=== PATIENT | male | born 1940 | race Hispanic/Latino ===

== ENCOUNTER 2017-04-12 09:28 | Inpatient (IN) | payer MEDICARE, BC ==
[2017-04-12 09:42] VITALS: BMI 24.4
--- NOTE | 2017-04-12 10:01 | ED PDOC ---
Arrival/HPI - General Chief Complaint: Lower Extremity Problem/Injury Time Seen by Provider: 04/12/17 09:40 Historian: Patient - History of Present Illness Narrative History of Present Illness (Text): 04/12/17 10:00 76 year old male, occasional smoker, with past medical history of hypertension , benign prostatic hyperplasia, and borderline diabetic, presents to the emergency department complaining of left foot infection for one week. Patient informs stepping on a toothpick barefoot 1 week ago and noticed puncture, mild redness and swelling afterwards. Patient informs visiting a foot doctor 3 days ago for worsening symptoms and informs receiving treatment. Yesterday, patient noticed worsening symptoms with redness and swelling spreading to his toes and on top of foot and discomfort moving his toes. Patient informs blood and drainage in the wound area. Patient denies any fever, chills, nausea, vomiting, abdominal pain, chest pain, shortness of breath, sick contact, recent travels or any other complaints. PMD: Dr. Obrien Time/Duration: 1 week Symptom Onset: Sudden Symptom Course: Worsening Activities at Onset: Light Context: Other (Stepped on toothpick ) Past Medical History - Provider Review Nursing Documentation Reviewed: Yes - Infectious Disease Hx of Infectious Diseases: None - Tetanus Immunization Tetanus Immunization: Unknown - Cardiac Hx Hypertension: Yes - Pulmonary Hx Pneumonia: Yes - Neurological Hx Transient Ischemic Attacks (TIA): Yes (PATIENT DENIES) - HEENT Hx HEENT Disorder: Yes (WEARS RX GLASSES) Hx Deafness: Yes (BILATERAL EARS) - Renal Hx Renal Disorder: No - Endocrine/Metabolic Hx Endocrine Disorders: Yes (DM -BORDERLINE) - Hematological/Oncological Hx Blood Disorders: Yes Hx Cancer: Yes (PALATE/RASIATION COMPLETED 5 YRS AGO) - Integumentary Hx Dermatological Disorder: No - Musculoskeletal/Rheumatological Hx Arthritis: No - Gastrointestinal Hx Gastrointestinal Disorders: Yes (INGUINAL HERNIA) Hx Gastroesophageal Reflux: Yes - Genitourinary/Gynecological Hx Genitourinary Disorders: Yes Hx Prostate Problems: Yes (BPH) - Psychiatric Hx Anxiety: Yes Hx Depression: No Hx Substance Use: No - Past Surgical History Past Surgical History: Non-Contributing - Surgical History Hx Cardiac Catheterization: Yes - Anesthesia Hx Anesthesia: No Hx Anesthesia Reactions: No Hx Malignant Hyperthermia: No - Suicidal Assessment Feels Threatened In Home Enviroment: No Family/Social History - Physician Review Nursing Documentation Reviewed: Yes Family/Social History: No Known Family HX Smoking Status: Never Smoked Hx Alcohol Use: No Hx Substance Use: No Hx Substance Use Treatment: No Allergies/Home Meds Allergies/Adverse Reactions: Allergies No Known Allergies Allergy (Verified 07/04/14 19:18) Home Medications: Home Meds Medication Instructions Recorded Confirmed Lorazepam [Ativan] 2 mg PO HS 01/03/13 04/12/17 Silodosin [Rapaflo] 8 mg PO DAILY 01/03/13 04/12/17 Dutasteride [Avodart] 0.5 mg PO DAILY 04/12/17 04/12/17 Review of Systems - Physician Review All systems were reviewed & negative as marked: Yes - Review of Systems Constitutional: Normal. absent: Fevers Eyes: Normal ENT: Normal Respiratory: Normal. absent: SOB Cardiovascular: Normal. absent: Chest Pain Gastrointestinal: Normal. absent: Abdominal Pain, Diarrhea, Nausea, Vomiting Genitourinary Male: Normal Musculoskeletal: Other (left foot puncture s/p stepping on toothpick ) Skin: Other (redness and swelling to the area of puncture on left foot ) Neurological: Normal Endocrine: Normal Hemo/Lymphatic: Normal Psychiatric: Normal Physical Exam Vital Signs Reviewed: Yes Vital Signs Temp Pulse Resp BP Pulse Ox 04/12/17 12:08 18 98 04/12/17 11:36 98.0 F 82 17 99 04/12/17 09:28 98.7 F 84 18 148/77 98 Temperature: Afebrile Blood Pressure: Normal Pulse: Regular Respiratory Rate: Normal Appearance: Positive for: Well-Appearing, Non-Toxic, Comfortable Pain Distress: Mild Mental Status: Positive for: Alert and Oriented X 3 - Systems Exam Head: Present: Atraumatic Pupils: Present: PERRL Mouth: Present: Moist Mucous Membranes Pharnyx: No: ERYTHEMA Neck: No: Meningeal Signs Respiratory/Chest: Present: Clear to Auscultation. No: Respiratory Distress Cardiovascular: Present: Regular Rate and Rhythm Abdomen: No: Tenderness Upper Extremity: No: Cyanosis, Edema Lower Extremity: Present: Tenderness, Swelling, Erythema, Other (patient with puncture wound to plantar surface of left foot with no palpable foreign bodies but significant surrounding erythema and edema with currently no pus or bleeding there is erythema extending to dorsal aspect of foot with mild erythema to distal xiao/ankle, distal pulses intact) Neurological: Present: Motor Func Grossly Intact, Normal Sensory Function Skin: Present: Erythematous (left foot) Psychiatric: Present: Alert Medical Decision Making ED Course and Treatment: 04/12/17 10:11 Impression: 76 year old male presents to the emergency department complaining of left foot infection. Differential Diagnosis included but are not limited to: cellulitis, foreign body , abscess Plan: -- VBG -- Labs -- Rocephin -- Blood culture -- Urine culture -- wound culture -- X-ray of left foot -- Urinalysis -- Reassess and disposition Progress Notes: Patient states he is not diabetic, states he was "borderline diabetic in past". He reports seeing waste/materials exchange specialist 2-3 days ago with attempt at removal of foreign body. Patient's exam is significant for cellulitis changes to left foot with streaking, currently no fluctuance or systemic symptoms. He is neurovascularly intact. IV antibiotics initiated. 04/12/17 12:10 X-Ray of foot reviewed by radiologist, shows small radiopaque foreign bodies in the subcutaneous soft tissues of the plantar forefoot, the largest measures 4 mm. Patient will be admitted for treatment of cellulitis, podiatry consultation for foreign body. D/w hospitalist covering for PMD. Treatment plan reviewed with patient and Dr. Singh. - Lab Interpretations Microbiology Results: Microbiology Results 04/12/17 10:05 Blood Blood Culture - Preliminary NO GROWTH AFTER 24 HOURS 04/12/17 10:05 Blood Blood Culture - Preliminary NO GROWTH AFTER 24 HOURS 04/12/17 10:05 Foot - Left Gram Stain - Final Lab Results: 04/12/17 10:05 04/12/17 10:00 Lab Results 04/12/17 10:31: Urine Color Yellow, Urine Appearance Clear, Urine pH 6.0, Ur Specific [place] 1.020, Urine Protein Negative, Urine Glucose (UA) Negative, Urine Ketones Trace H, Urine Blood Moderate H, Urine Nitrate Negative, Urine Bilirubin Negative, Urine Urobilinogen 0.2, Ur Leukocyte Esterase Negative, Urine RBC 15 - 20, Urine WBC 0 - 2, Ur Epithelial Cells None, Amorphous Sediment Few, Urine Bacteria Many, Urine Other Fiber 04/12/17 10:05: WBC 12.1 H D, RBC 4.10, Hgb 13.3 L, Hct 38.5 L, MCV 93.9, MCH 32.4, MCHC 34.5, RDW 12.7, Plt Count 260, MPV 10.9, Gran % 77.6 H, Lymph % (Auto ) 11.7 L, [place] % (Auto) 10.4 H, Eos % (Auto) 0.1 L, Baso % (Auto) 0.2, Gran # 9.36 H, Lymph # 1.4, [place] # 1.3 H, Eos # 0.0, Baso # 0.03 04/12/17 10:00: Sodium 137, Chloride 101, Potassium 4.5, Carbon Dioxide 26, Anion Gap 15, BUN 18, Creatinine 1.2, Est GFR ( Amer) > 60, Est GFR (Non- Af Amer) 59, Random Glucose 191 H, Calcium 10.1, Total Bilirubin 1.3, AST 32, ALT 34, Alkaline Phosphatase 73, Total Protein 7.2, Albumin 4.4, Globulin 2.8, Albumin/Globulin Ratio 1.6 04/12/17 10:00: pO2 40, VBG pH 7.34, VBG pCO2 52.0, VBG HCO3 28.1 H, VBG Total CO2 29.7 H, VBG O2 Sat (Calc) 79.4 H, VBG Base Excess 1.4, VBG Potassium 4.4, Sodium 135.0, Chloride 102.0, Glucose 207 H, Lactate 2.0, FiO2 21.0, Venous Blood Potassium 4.4 - RAD Interpretation Radiology Orders: 04/12/17 10:01 FOOT LEFT 3 VIEWS ROUTINE [RAD] Stat Editorial Clerk: Radiologist - Medication Orders Current Medication Orders: Acetaminophen (Tylenol 325mg Tab) 650 mg PO Q4H PRN PRN Reason: Pain, Mild (1-3) Heparin Sodium (Porcine) (Heparin) 5,000 units SC Q12 KEVIN PRN Reason: Protocol Last Admin: 04/13/17 09:51 Dose: 5,000 units Subcutaneous Administrations Document 04/13/17 09:51 ANTOALL (Rec: 04/13/17 09:51 [place] [facility] [id number] Injection Site MAR Injection Site Left Abdomen Charges for Administration # of Subcutaneous Administrations 1 Vancomycin HCl (Vancomycin 1gm) 1 gm in 250 mls @ 167 mls/hr IVPB Q12H KEVIN PRN Reason: Protocol Last Admin: 04/13/17 06:10 Dose: 167 mls/hr eMAR Start Stop Document 04/13/17 06:10 MB (Rec: 04/13/17 06:10 [id number]) Intravenous Solution Start Date 04/13/17 Start Time 06:10 Ampicillin Sodium/Sulbactam (Sodium 3 gm/ Sodium Chloride) 100 mls @ 200 mls/ hr IVPB Q6 KEVIN PRN Reason: Protocol Last Admin: 04/13/17 06:06 Dose: 200 mls/hr eMAR Start Stop Document 04/13/17 06:06 MB (Rec: 04/13/17 06:06 [id number]) Intravenous Solution Start Date 04/13/17 Start Time 06:06 Indomethacin (Indocin) 25 mg PO TID KEVIN Last Admin: 04/13/17 10:05 Dose: 25 mg MAR Pain Assessment Document 04/13/17 10:05 ANTOALL (Rec: 04/13/17 10:06 [place]TO[place] [facility] [place] [id number][place] Pain Reassessment Is this a pain reassessment? No Sleep Is patient sleeping during reassessment? No Presence of Pain Presence of Pain Yes Location Left, Right or Bilateral Left Pain Location Body Site Foot Description Description Intermittent Intensity of Pain at present 6 Lorazepam (Ativan) 2 mg PO HS KEVIN PRN Reason: Protocol Last Admin: 04/12/17 22:51 Dose: 2 mg Behavioural Document 04/12/17 22:51 MB (Rec: 04/12/17 22:51 [id number]) Maintenance Maintenance Dose Yes Re-Assess: Reassess Psych Meds Document 04/12/17 23:51 MB (Rec: 04/13/17 02:44 MB [id number]) Reassess Psych Med Effective Pantoprazole Sodium (Protonix Ec Tab) 40 mg PO 0600 [facility] Last Admin: 04/13/17 06:10 Dose: 40 mg Tamsulosin HCl (Flomax) 0.4 mg PO DAILY KEVIN Last Admin: 04/13/17 09:51 Dose: 0.4 mg Discontinued Medications Ceftriaxone Sodium (Rocephin 1 Gram Ivpb) 1 gm in 100 mls @ 200 mls/hr IVPB ONCE STA PRN Reason: Protocol Stop: 04/12/17 10:31 Last Admin: 04/12/17 10:24 Dose: 200 mls/hr eMAR Start Stop Document 04/12/17 10:24 [email or web address] (Rec: 04/12/17 10:34 [email or web address] [id number]) Intravenous Solution Start Date 04/12/17 Start Time 10:24 End Date 04/12/17 Vancomycin HCl (Vancomycin 1gm) 1 gm in 250 mls @ 167 mls/hr IVPB STAT STA PRN Reason: Protocol Stop: 04/12/17 12:19 Last Admin: 04/12/17 11:25 Dose: 167 mls/hr eMAR Start Stop Document 04/12/17 11:25 [email or web address] (Rec: 04/12/17 11:26 [email or web address] [id number]) Intravenous Solution Start Date 04/12/17 Start Time 11:26 End Date 04/12/17 Pneumococcal Polyvalent Vaccine (Pneumovax 23 Vaccine) 0.5 ml IM .ONCE ONE Stop: 04/12/17 15:30 Last Admin: 04/12/17 18:23 Dose: MAR Immunization Data Document 04/12/17 18:23 (Rec: 04/12/17 18:24 [email or web address]) Immunization Data Vaccine Information Sheet Given No: refused Immunization Registry Document 04/12/17 18:23 (Rec: 04/12/17 18:24 [email or web address]) Immunization Registry Consent Date 04/12/17 - Scribe Statement The provider has reviewed the documentation as recorded by the Scribe Juliano Cao. All medical record entries made by the Scribe were at my direction and personally dictated by me. I have reviewed the chart and agree that the record accurately reflects my personal performance of the history, physical exam, medical decision making, and the department course for this patient. I have also personally directed, reviewed, and agree with the discharge instructions and disposition. Disposition/Present on Arrival - Present on Arrival Any Indicators Present on Arrival: No History of DVT/PE: No History of Uncontrolled Diabetes: No Urinary Catheter: No History of Decub. Ulcer: No History Surgical Site Infection Following: None - Disposition Have Diagnosis and Disposition been Completed?: Yes Diagnosis: Cellulitis of foot, Puncture wound of foot, Foreign body in foot Disposition: HOSPITALIZED Disposition Time: 10:30 Patient Plan: Admission Condition: FAIR
[2017-04-12] MEDS ORDERED: cefTRIAXone 1 gm 1 GM/100 ML BAG IVPB STA (10:02)
[2017-04-12 10:32] LABS: BASO # 0.03 K/mm3 (0.0-2.0); BASO % 0.2 % (0.0-3.0); EOS % 0.1 % (1.5-5.0); GRAN # 9.36 (1.4-6.5); GRAN % 77.6 % (50.0-68.0); HEMOGLOBIN 13.3 g/dL (14.0-18.0); LYMPH # 1.4 (1.2-3.4); LYMPH % 11.7 % (22.0-35.0); MEAN CELL VOLUME 93.9 fl (80.0-105.0); MEAN CORPUSCULAR HEMOGLOBIN 32.4 pg (25.0-35.0); MEAN CORPUSCULAR HGB CONC 34.5 g/dl (31.0-37.0); MEAN PLATELET VOLUME 10.9 fl (7.0-11.0); MONO # 1.3 (0.1-0.6); MONO % 10.4 % (1.0-6.0); RBC 4.1 10^6/uL (3.5-6.1); RED CELL DISTRIBUTION WIDTH 12.7 % (11.5-14.5); WHITE BLOOD COUNT 12.1 10^3/ul (4.5-11.0)
[2017-04-12 10:35] LABS: VENOUS BLOOD GAS BASE EXCESS 1.4 mmol/L (0.0-2.0); VENOUS BLOOD GAS PO2 40 mm/Hg (30-55); VENOUS BLOOD PH 7.34 (7.32-7.43)
[2017-04-12 10:38] LABS: ALB/GLOB RATIO 1.6 (1.1-1.8); ALBUMIN 4.4 g/dL (3.0-4.8); ALT/SGPT 34 U/L (7-56); AST/SGOT 32 U/L (17-59); BLOOD UREA NITROGEN 18 mg/dL (7-21); CALCIUM 10.1 mg/dL (8.4-10.5); GFR AFRICAN-AMERICAN > 60; GFR NON-AFRICAN AMERICAN 59
[2017-04-12 10:43] LABS: URINE BILIRUBIN NEGATIVE (NEGATIVE); URINE BLOOD MODERATE (NEGATIVE); URINE GLUCOSE (UA) NEGATIVE (NEGATIVE); URINE LEUKOCYTE ESTERASE NEGATIVE Leu/uL (NEGATIVE); URINE NITRATE NEGATIVE (NEGATIVE); URINE PROTEIN NEGATIVE mg/dL (<30 mg/dL); URINE UROBILINOGEN 0.2 E.U./dL (<1 E.U./dL)
[2017-04-12 10:44] LABS: URINE APPEARANCE CLEAR (CLEAR); URINE COLOR YELLOW (YELLOW)
[2017-04-12] MEDS ORDERED: Vancomycin 1gm in NS 250ml 1 GM/250 ML BAG IVPB STA (10:50)
[2017-04-12 10:52] LABS: URINE BACTERIA MANY (NEG); URINE RBC 15 - 20 /hpf (0-2); URINE WBC 0 - 2 /hpf (0-6)
[2017-04-12 10:53] LABS: URINE AMORPHOUS SEDIMENT FEW
--- NOTE | 2017-04-12 11:59 | CP.PCM.HP ---
<Moises Dobbins - Last Filed: 04/12/17 13:20> History of Present Illness - History of Present Illness History of Present Illness: 76 year old male with past medical history of CAD, prolonged QT syndrome, BPH, hyperlipidemia, anxiety, and subclinical hypothyroidism presents with painful swelling of the left foot. Patient states he stepped on a toothpick barefoot at home 1 week ago. He immediately removed the tooth pick from his skin. 3 days ago he followed up with his Physical Therapist Center Manager who cleaned the wound and dressed it. Patient states pain was tolerable until yesterday, although he had been walking more than he was advised to. Patient does not mild blood and drainage from wound on the bottom of his left foot. He also indicates there has been increased swelling during this time. Patient denies chest pain, shortness of breath, nausea, vomiting, diarrhea, fever, chills, headache, numbness, tingling , dysuria, constipation. PMH: CAD, prolonged QT syndrome, BPH, hyperlipidemia, anxiety, and subclinical hypothyroidism Family medical history: Noncontributory Social history: Current smoker, 3-4 cigarettes per day. 3-4 alcoholic beverages per day, denies illicit drug use Allergies: NKDA Medications: Reviewed, as per MAR Present on Admission - Present on Admission Any Indicators Present on Admission: No Review of Systems - Review of Systems Review of Systems: 12 point ROS as per HPI, otherwise negative Past Patient History - Infectious Disease Hx of Infectious Diseases: None - Tetanus Immunizations Tetanus Immunization: Unknown - Past Social History Smoking Status: Never Smoked - CARDIAC Hx Hypertension: Yes - PULMONARY Hx Pneumonia: Yes - NEUROLOGICAL Hx Transient Ischemic Attacks (TIA): Yes (PATIENT DENIES) - HEENT Hx HEENT Problems: Yes (WEARS RX GLASSES) Hx Deafness: Yes (BILATERAL EARS) - RENAL Hx Chronic Kidney Disease: No - ENDOCRINE/METABOLIC Hx Endocrine Disorders: Yes (DM -BORDERLINE) - HEMATOLOGICAL/ONCOLOGICAL Hx Blood Disorders: Yes Hx Cancer: Yes (PALATE/RASIATION COMPLETED 5 YRS AGO) - INTEGUMENTARY Hx Dermatological Problems: No - MUSCULOSKELETAL/RHEUMATOLOGICAL Hx Arthritis: No - GASTROINTESTINAL Hx Gastrointestinal Disorders: Yes (INGUINAL HERNIA) Hx Gastroesophageal Reflux: Yes - GENITOURINARY/GYNECOLOGICAL Hx Genitourinary Disorders: Yes Hx Prostate Problems: Yes (BPH) - PSYCHIATRIC Hx Anxiety: Yes Hx Depression: No Hx Substance Use: No - SURGICAL HISTORY Hx Cardiac Catheterization: Yes - ANESTHESIA Hx Anesthesia: No Hx Anesthesia Reactions: No Hx Malignant Hyperthermia: No Meds Allergies/Adverse Reactions: Allergies Allergy/AdvReac Type Severity Reaction Status Date / Time No Known Allergies Allergy Verified 07/04/14 19:18 Physical Exam - Constitutional Appears: Non-toxic, No Acute Distress - Head Exam Head Exam: ATRAUMATIC, NORMAL INSPECTION, NORMOCEPHALIC - Eye Exam Eye Exam: EOMI, Normal appearance - ENT Exam ENT Exam: Mucous Membranes Moist, Normal Exam - Neck Exam Neck exam: Positive for: Normal Inspection. Negative for: Lymphadenopathy - Respiratory Exam Respiratory Exam: Clear to Auscultation Bilateral, NORMAL BREATHING PATTERN - Cardiovascular Exam Cardiovascular Exam: RRR, +S1, +S2 - GI/Abdominal Exam GI & Abdominal Exam: Normal Bowel Sounds, Soft. absent: Tenderness - Extremities Exam Additional comments: Left foot erythema and edema. Skin puncture wound on plantar aspect of foot. No drainage noted. - Neurological Exam Neurological exam: Alert, CN II-XII Intact, Oriented x3 - Psychiatric Exam Psychiatric exam: Normal Affect, Normal Mood - Skin Skin Exam: Erythema, Intact, Warm Results - Vital Signs Recent Vital Signs: Last Vital Signs Temp 98.0 F 04/12/17 11:36 Pulse 82 04/12/17 11:36 Resp 17 04/12/17 11:36 BP 148/77 04/12/17 09:28 Pulse Ox 99 04/12/17 11:36 - Labs Result Diagrams: 04/12/17 12:20 04/12/17 10:00 Labs: Laboratory Results - last 24 hr 04/12/17 04/12/17 04/12/17 10:00 10:00 10:05 WBC 12.1 H D RBC 4.10 Hgb 13.3 L Hct 38.5 L MCV 93.9 MCH 32.4 MCHC 34.5 RDW 12.7 Plt Count 260 MPV 10.9 Gran % 77.6 H Lymph % (Auto) 11.7 L [place] % (Auto) 10.4 H Eos % (Auto) 0.1 L Baso % (Auto) 0.2 Gran # 9.36 H Lymph # 1.4 [place] # 1.3 H Eos # 0.0 Baso # 0.03 pO2 40 VBG pH 7.34 VBG pCO2 52.0 VBG HCO3 28.1 H VBG Total CO2 29.7 H VBG O2 Sat (Calc) 79.4 H VBG Base Excess 1.4 VBG Potassium 4.4 Sodium 135.0 137 Chloride 102.0 101 Glucose 207 H Lactate 2.0 FiO2 21.0 Potassium 4.5 Carbon Dioxide 26 Anion Gap 15 BUN 18 Creatinine 1.2 Est GFR ( Amer) > 60 Est GFR (Non-Af Amer) 59 Random Glucose 191 H Calcium 10.1 Total Bilirubin 1.3 AST 32 ALT 34 Alkaline Phosphatase 73 Total Protein 7.2 Albumin 4.4 Globulin 2.8 Albumin/Globulin Ratio 1.6 Venous Blood Potassium 4.4 Urine Color Urine Appearance Urine pH Ur Specific [place] Urine Protein Urine Glucose (UA) Urine Ketones Urine Blood Urine Nitrate Urine Bilirubin Urine Urobilinogen Ur Leukocyte Esterase Urine RBC Urine WBC Ur Epithelial Cells Amorphous Sediment Urine Bacteria Urine Other 04/12/17 10:31 WBC RBC Hgb Hct MCV MCH MCHC RDW Plt Count MPV Gran % Lymph % (Auto) [place] % (Auto) Eos % (Auto) Baso % (Auto) Gran # Lymph # [place] # Eos # Baso # pO2 VBG pH VBG pCO2 VBG HCO3 VBG Total CO2 VBG O2 Sat (Calc) VBG Base Excess VBG Potassium Sodium Chloride Glucose Lactate FiO2 Potassium Carbon Dioxide Anion Gap BUN Creatinine Est GFR ( Amer) Est GFR (Non-Af Amer) Random Glucose Calcium Total Bilirubin AST ALT Alkaline Phosphatase Total Protein Albumin Globulin Albumin/Globulin Ratio Venous Blood Potassium Urine Color Yellow Urine Appearance Clear Urine pH 6.0 Ur Specific [place] 1.020 Urine Protein Negative Urine Glucose (UA) Negative Urine Ketones Trace H Urine Blood Moderate H Urine Nitrate Negative Urine Bilirubin Negative Urine Urobilinogen 0.2 Ur Leukocyte Esterase Negative Urine RBC 15 - 20 Urine WBC 0 - 2 Ur Epithelial Cells None Amorphous Sediment Few Urine Bacteria Many Urine Other Fiber Assessment & Plan - Assessment and Plan (Free Text) Plan: 76 year old male with past medical history of CAD, prolonged QT syndrome, BPH, hyperlipidemia, anxiety, and subclinical hypothyroidism presents with cellulitis of left foot. Patient received Vancomycin and Rocephin in the ED. Patient will be continued on Vancomycin and Unasyn. Podiatry will be consulted. Patient's BPH meds not available at hospital, will place patient on Flomax at this time. Patient requires Ativan for insomnia. 1. Left foot cellulitis Vancomycin and Unasyn Foot X-rays pending Podiatry consulted Wound culture Tylenol for pain 2. BPH Home meds not on formulary, will start Flomax 3. Prophylaxis Protonix Heparin Shilpi, PGY-2 <Halle Singh - Last Filed: 04/12/17 16:26> Results - Vital Signs Recent Vital Signs: Last Vital Signs Temp 98 F 04/12/17 14:57 Pulse 82 04/12/17 14:57 Resp 17 04/12/17 14:57 BP 148/77 04/12/17 14:57 Pulse Ox 98 04/12/17 12:08 - Labs Result Diagrams: 04/12/17 12:20 04/12/17 10:00 Labs: Laboratory Results - last 24 hr 04/12/17 04/12/17 12:20 14:00 WBC 10.5 RBC 4.04 Hgb 12.8 L Hct 37.9 L MCV 93.8 MCH 31.7 MCHC 33.8 RDW 12.7 Plt Count 247 MPV 10.6 pO2 43 VBG pH 7.41 VBG pCO2 42.0 VBG HCO3 26.6 VBG Total CO2 27.9 VBG O2 Sat (Calc) 85.7 H VBG Base Excess 1.7 VBG Potassium 3.9 Sodium 136.0 Chloride 105.0 Glucose 171 H Lactate 1.5 FiO2 21.0 Venous Blood Potassium 3.9 Attending/Attestation - Attestation I have personally seen and examined this patient.: Yes I have fully participated in the care of the patient.: Yes I have reviewed all pertinent clinical information: Yes Notes (Text): 04/12/17 16:23 Patient was seen and examined with medical billing representative. Agreed with assessment and plan. 76 year old male with past medical history of CAD, BPH, hyperlipidemia, anxiety , and subclinical hypothyroidism presents with cellulitis of left foot.Xray of foot showed foreign body. We will start patient on IV Vancomycin and unasyn.We will get Podiatry consult.We will follow up cultures. Management plan was discussed in detail with patient. Education was provided. 04/12/17 16:25
--- NOTE | 2017-04-12 12:08 | RAD ---
PROCEDURE: Left Foot Radiographs. HISTORY: eval for foreign body COMPARISON: None. FINDINGS: BONES: There is no acute displaced fracture or bone destruction. Bone alignment and mineralization are normal. JOINTS: Normal. SOFT TISSUES: There are several tiny radiodensities in the subcutaneous soft tissues of the plantar forefoot, the largest measures 4 mm. OTHER FINDINGS: None. IMPRESSION: Small radiopaque foreign bodies in the subcutaneous soft tissues of the plantar forefoot, the largest measures 4 mm.
[2017-04-12 12:32] LABS: HEMOGLOBIN 12.8 g/dL (14.0-18.0); MEAN CELL VOLUME 93.8 fl (80.0-105.0); MEAN CORPUSCULAR HEMOGLOBIN 31.7 pg (25.0-35.0); MEAN CORPUSCULAR HGB CONC 33.8 g/dl (31.0-37.0); MEAN PLATELET VOLUME 10.6 fl (7.0-11.0); RBC 4.04 10^6/uL (3.5-6.1); RED CELL DISTRIBUTION WIDTH 12.7 % (11.5-14.5); WHITE BLOOD COUNT 10.5 10^3/ul (4.5-11.0)
[2017-04-12 14:13] LABS: VENOUS BLOOD GAS BASE EXCESS 1.7 mmol/L (0.0-2.0); VENOUS BLOOD GAS PO2 43 mm/Hg (30-55); VENOUS BLOOD PH 7.41 (7.32-7.43)
[2017-04-12] MEDS ORDERED: Pneumococcal 23-Valent Vaccine IM ONE (15:29)
[2017-04-12] MEDS ORDERED: Influenza Vaccine 60 mcg/0.5 mL SYR (4YR UP) IM ONE (15:29)
[2017-04-12] MEDS: Vancomycin 1gm in NS 250ml 1 GM/250 ML BAG IVPB SCH (17:41)
[2017-04-13] MEDS: Pantoprazole 40 mg EC Tab PO SCH (06:10)
[2017-04-13] MEDS: Vancomycin 1gm in NS 250ml 1 GM/250 ML BAG IVPB SCH ×2 (06:10→19:28)
[2017-04-13 08:33] LABS: ALB/GLOB RATIO 1.3 (1.1-1.8); ALBUMIN 3.8 g/dL (3.0-4.8); ALT/SGPT 28 U/L (7-56); AST/SGOT 25 U/L (17-59); BLOOD UREA NITROGEN 16 mg/dL (7-21); CALCIUM 9.7 mg/dL (8.4-10.5); GFR AFRICAN-AMERICAN > 60; GFR NON-AFRICAN AMERICAN > 60
[2017-04-13 12:19] LABS: HEMOGLOBIN 12.1 g/dL (14.0-18.0); MEAN CELL VOLUME 94.8 fl (80.0-105.0); MEAN CORPUSCULAR HEMOGLOBIN 31.5 pg (25.0-35.0); MEAN CORPUSCULAR HGB CONC 33.2 g/dl (31.0-37.0); MEAN PLATELET VOLUME 11.1 fl (7.0-11.0); RBC 3.84 10^6/uL (3.5-6.1); RED CELL DISTRIBUTION WIDTH 12.9 % (11.5-14.5); WHITE BLOOD COUNT 8.6 10^3/ul (4.5-11.0)
--- NOTE | 2017-04-13 17:02 | CP.PCM.CON ---
History of Present Illness - History of Present Illness History of Present Illness: Podiatry Consult Note- Dr. Mai. 76 year old male, occasional smoker, with past medical history of hypertension , benign prostatic hyperplasia, and borderline diabetic, seen at bedside concerning left foot redness and swelling. Patient reports over 1 week ago he stepped on a toothpick barefoot, noticing a puncture he removed the foreign body , though does not recall if it was fully intact. 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 In office attempt was made to remove and remaining artifact and lavage the site. Pt was already on oral Augmentin at this time for unrelated health issue. Yesterday, patient noticed returning worsening symptoms with presence of blood and drainage in the wound area. Patient denies any fever, chills, nausea, vomiting, abdominal pain, chest pain, or shortness of breath. Pt also reports, he believes this issue has brought on an acute gout attack to hes great toe, as the patient has previous gout history. Pt states pain and redness dissipated upon receiving Indomethicin after admission. Review of Systems - Review of Systems All systems: reviewed and no additional remarkable complaints except Past Patient History - Infectious Disease Hx of Infectious Diseases: None - Tetanus Immunizations Tetanus Immunization: Unknown - Past Social History Smoking Status: Never Smoked - CARDIAC Hx Hypertension: Yes - PULMONARY Hx Pneumonia: Yes - NEUROLOGICAL Hx Transient Ischemic Attacks (TIA): Yes (PATIENT DENIES) - HEENT Hx HEENT Problems: Yes (WEARS RX GLASSES) Hx Deafness: Yes (BILATERAL EARS) - RENAL Hx Chronic Kidney Disease: No - ENDOCRINE/METABOLIC Hx Endocrine Disorders: Yes (DM -BORDERLINE) - HEMATOLOGICAL/ONCOLOGICAL Hx Blood Disorders: Yes Hx Cancer: Yes (PALATE/RASIATION COMPLETED 5 YRS AGO) - INTEGUMENTARY Hx Dermatological Problems: No - MUSCULOSKELETAL/RHEUMATOLOGICAL Hx Arthritis: No - GASTROINTESTINAL Hx Gastrointestinal Disorders: Yes (INGUINAL HERNIA) Hx Gastroesophageal Reflux: Yes - GENITOURINARY/GYNECOLOGICAL Hx Genitourinary Disorders: Yes Hx Prostate Problems: Yes (BPH) - PSYCHIATRIC Hx Anxiety: Yes Hx Depression: No Hx Substance Use: No - SURGICAL HISTORY Hx Cardiac Catheterization: Yes - ANESTHESIA Hx Anesthesia: No Hx Anesthesia Reactions: No Hx Malignant Hyperthermia: No Meds Allergies/Adverse Reactions: Allergies Allergy/AdvReac Type Severity Reaction Status Date / Time No Known Allergies Allergy Verified 04/20/15 19:18 - Medications Medications: Current Medications Acetaminophen (Tylenol 325mg Tab) 650 mg PO Q4H PRN PRN Reason: Pain, Mild (1-3) Heparin Sodium (Porcine) (Heparin) 5,000 units SC Q12 [facility] PRN Reason: Protocol Last Admin: 04/13/17 09:51 Dose: 5,000 units Vancomycin HCl (Vancomycin 1gm) 1 gm in 250 mls @ 167 mls/hr IVPB Q12H [facility] PRN Reason: Protocol Last Admin: 04/13/17 06:10 Dose: 167 mls/hr Ampicillin Sodium/Sulbactam (Sodium 3 gm/ Sodium Chloride) 100 mls @ 200 mls/ hr IVPB Q6 [facility] PRN Reason: Protocol Last Admin: 04/13/17 13:00 Dose: 200 mls/hr Indomethacin (Indocin) 25 mg PO TID [facility] Last Admin: 04/13/17 13:21 Dose: 25 mg Lorazepam (Ativan) 2 mg PO HS [facility] PRN Reason: Protocol Last Admin: 04/12/17 22:51 Dose: 2 mg Pantoprazole Sodium (Protonix Ec Tab) 40 mg PO 0600 [facility] Last Admin: 04/13/17 06:10 Dose: 40 mg Tamsulosin HCl (Flomax) 0.4 mg PO DAILY [facility] Last Admin: 04/13/17 09:51 Dose: 0.4 mg Physical Exam - Constitutional Appears: Well, Non-toxic, No Acute Distress - Extremities Exam Additional comments: Left lower extremity focused. DERM: Plantar forefoot entry point noted proximal to 3rd inter-metatarsal space with unstable hematogenous eschar. Upon sharp debridement portal of entry measuring 0.5 x 0.3 x 0.3cm with necrotic margins noted and non-streaking localized luis armando-wound erythema and callor noted. No purulent discharge produced on palpation. No mal-odor present. Otherwise no open lesions, macerations, hyperkeratotic lesions VASC: DP and PT pulses fully palpable graded 1/4. Pedal hair growth noted to dorsum of foot. Skin semp runs warm to warm proximal to distal. NEURO: Protective sensation grossly intact. MUSK. Tenderness to 1st MTPJ range of motion. Pedal muscle strength and tone within normal limits. No gross deformities noted. - Neurological Exam Neurological exam: Alert, Oriented x3 - Psychiatric Exam Psychiatric exam: Normal Affect, Normal Mood Results - Vital Signs Recent Vital Signs: Last Vital Signs Temp 98.5 F 04/13/17 08:00 Pulse 69 04/13/17 08:00 Resp 18 04/13/17 08:00 BP 120/72 04/13/17 08:00 Pulse Ox 96 04/13/17 08:00 - Labs Result Diagrams: 04/13/17 11:40 04/13/17 07:00 Labs: Laboratory Results - last 24 hr 04/13/17 04/13/17 04/13/17 07:00 10:00 11:40 WBC 8.6 RBC 3.84 Hgb 12.1 L Hct 36.4 L MCV 94.8 MCH 31.5 MCHC 33.2 RDW 12.9 Plt Count 228 MPV 11.1 H Sodium 137 Potassium 3.7 Chloride 103 Carbon Dioxide 26 Anion Gap 13 BUN 16 Creatinine 1.1 Est GFR ( Amer) > 60 Est GFR (Non-Af Amer) > 60 Random Glucose 137 H Uric Acid 6.9 Calcium 9.7 Total Bilirubin 1.0 AST 25 ALT 28 Alkaline Phosphatase 68 Total Protein 6.7 Albumin 3.8 Globulin 2.9 Albumin/Globulin Ratio 1.3 Assessment & Plan - Assessment and Plan (Free Text) Assessment: 76 year old male with 1) left foot foreign body puncture wound and localized cellulits. 2) left foot acute gout attack Plan: Pt seen and evaluated. Discussed with attending, Dr. Mai, who endorsed the following plan. Chart, labs, and vitals reviewed. WBC= 10.5; afebrile. Uric Acid 6.9; within normal limits. Wound Cx-negative X-ray results- left plantar foot subcutaneous space shows multiple small radio- dense foreign bodies, localized to small area. Discussed with pt need for potential surgical suite foreign body removal. Discussed procedure and inhrent risks, benefits, complications and alternatives to this procedure. Pt is amenable to this treatment option, if deemed necessary. Flushed wound site with sterile saline, dressed with betadine and DSD. Continue IV abx- Vanco and Unasyn. Continue Indomethacin Requesting medical clearance should pt need to go to OR for removal of foreign bodies. Podiatry will continue to follow this patient while inhouse. - Date & Time Date: 04/13/17 Time: 13:40
--- NOTE | 2017-04-13 18:07 | CP.PCM.PN ---
Subjective - Date & Time of Evaluation Date of Evaluation: 04/13/17 Time of Evaluation: 07:45 - Subjective Subjective: Medicine Progress Note: Patient seen and assessed at bedside. No acute events noted overnight by patient or nursing staff. Patient endorses that he has increased redness and pain around his LLE ulcer. He believes this may be acute gout, as he has had this in the past. Patient denies any other complaints. Patient denies fever, chills, headache, chest pain, SOB, cough, abdominal pain, N/V/D/C, burning/pain with urination or any numbness/tingling of any extremity. Objective - Vital Signs/Intake and Output Vital Signs (last 24 hours): Temp Pulse Resp BP Pulse Ox 98.2 F 75 20 129/75 95 04/13/17 16:00 04/13/17 16:00 04/13/17 16:00 04/13/17 16:00 04/13/17 16:00 Intake and Output: 04/13/17 04/13/17 06:59 18:59 Intake Total 480 640 Output Total 525 Balance -45 640 - Medications Medications: Current Medications Acetaminophen (Tylenol 325mg Tab) 650 mg PO Q4H PRN PRN Reason: Pain, Mild (1-3) Heparin Sodium (Porcine) (Heparin) 5,000 units SC Q12 [facility] PRN Reason: Protocol Last Admin: 04/13/17 09:51 Dose: 5,000 units Vancomycin HCl (Vancomycin 1gm) 1 gm in 250 mls @ 167 mls/hr IVPB Q12H [facility] PRN Reason: Protocol Last Admin: 04/13/17 06:10 Dose: 167 mls/hr Ampicillin Sodium/Sulbactam (Sodium 3 gm/ Sodium Chloride) 100 mls @ 200 mls/ hr IVPB Q6 [facility] PRN Reason: Protocol Last Admin: 04/13/17 17:14 Dose: 200 mls/hr Indomethacin (Indocin) 25 mg PO TID [facility] OF [facility] Last Admin: 04/13/17 17:14 Dose: 25 mg Lorazepam (Ativan) 2 mg PO HS [facility] PRN Reason: Protocol Last Admin: 04/12/17 22:51 Dose: 2 mg Pantoprazole Sodium (Protonix Ec Tab) 40 mg PO 0600 [facility] Last Admin: 04/13/17 06:10 Dose: 40 mg Tamsulosin HCl (Flomax) 0.4 mg PO DAILY [facility] Last Admin: 04/13/17 09:51 Dose: 0.4 mg - Labs Labs: 04/13/17 11:40 04/13/17 07:00 - Constitutional Appears: Non-toxic, No Acute Distress - Head Exam Head Exam: ATRAUMATIC, NORMAL INSPECTION, NORMOCEPHALIC - Eye Exam Eye Exam: EOMI, Normal appearance, PERRL Pupil Exam: NORMAL ACCOMODATION, PERRL - ENT Exam ENT Exam: Mucous Membranes Moist, Normal Exam - Neck Exam Neck Exam: Full ROM, Normal Inspection. absent: Lymphadenopathy - Respiratory Exam Respiratory Exam: Clear to Ausculation Bilateral, NORMAL BREATHING PATTERN. absent: Accessory Muscle Use, Chest Wall Tenderness, Decreased Breath Sounds, Prolonged Expiratory Phase, Rales, Rhonchi, Wheezes, Respiratory Distress, Stridor - Cardiovascular Exam Cardiovascular Exam: REGULAR RHYTHM, RRR, +S1, +S2. absent: Bradycardia, Tachycardia, Clicks, Diastolic murmur, Gallop, Irregular Rhythm, JVD, Rubs, +S4 , Murmur - GI/Abdominal Exam GI & Abdominal Exam: Soft, Normal Bowel Sounds. absent: Bruit, Distended, Firm , Guarding, Rigid, Tenderness, Diminished Bowel Sounds, Hernia, Hyperactive Bowel Sounds, Hypoactive Bowel Sounds, Organomegaly, Pulsatile Mass, Rebound, Mass - Extremities Exam Extremities Exam: Full ROM, Normal Capillary Refill, Tenderness (LLE). absent: Calf Tenderness, Joint Swelling, Normal Inspection, Pedal Edema Additional comments: Ulceration to plantar forefoot with unstable hematogenous eschar; Small area of surrounding erythema with no purulent discharge, induration or fluctuance appreciated - Back Exam Back Exam: Full ROM, NORMAL INSPECTION. absent: CVA tenderness (L), CVA tenderness (R) - Neurological Exam Neurological Exam: Alert, Awake, CN II-XII Intact, Oriented x3 - Psychiatric Exam Psychiatric exam: Normal Affect, Normal Mood - Skin Skin Exam: Dry, Intact, Normal Color, Warm Assessment and Plan - Assessment and Plan (Free Text) Assessment: 76 year old male with past medical history of CAD, prolonged QT syndrome, BPH, hyperlipidemia, anxiety, and subclinical hypothyroidism presents with cellulitis of left foot. Patient received Vancomycin and Rocephin in the ED. Patient will be continued on Vancomycin and Unasyn. Podiatry will be consulted. Patient's BPH meds not available at hospital, will place patient on Flomax at this time. Patient requires Ativan for insomnia. Plan: 1. LLE Cellulitis -Left Foot X-Ray showing left plantar foot subcutaneous space shows multiple small radio-dense foreign bodies that are noted to be localized to a small area -Wound cultures negative for 24 hours -Continue IV Vancomycin and Unasyn -AM Vancomycin trough ordered -Continue wound care -Podiatry consulted, all recommendations appreciated 2. Acute Gout of LLE -Uric acid WNL -Indomethacin 25mg PO TID for pain control 3. History of BPH -Continue Flomax 4. History of Insomnia -Continue Ativan HS GI Prophylaxis: Protonix DVT Prophylaxis: Heparin Patient seen and case discussed with attending, Dr. Singh.
[2017-04-14] MEDS: Vancomycin 1gm in NS 250ml 1 GM/250 ML BAG IVPB SCH ×2 (05:36→19:55)
[2017-04-14] MEDS: Pantoprazole 40 mg EC Tab PO SCH (05:36)
[2017-04-14 07:47] LABS: ALB/GLOB RATIO 1.2 (1.1-1.8); ALBUMIN 3.5 g/dL (3.0-4.8); ALT/SGPT 30 U/L (7-56); AST/SGOT 31 U/L (17-59); BLOOD UREA NITROGEN 20 mg/dL (7-21); CALCIUM 9.3 mg/dL (8.4-10.5); GFR AFRICAN-AMERICAN > 60; GFR NON-AFRICAN AMERICAN > 60
--- NOTE | 2017-04-14 08:50 | CP.PCM.PN ---
<TonyMillicent - Last Filed: 04/14/17 08:53> Subjective - Date & Time of Evaluation Date of Evaluation: 04/14/17 Time of Evaluation: 08:47 - Subjective Subjective: 76 y/o male seen at bedside this morning with attending Dr. Mai for left foot pain s/p foreign body encounter. Pt states he stepped on a toothpick and thought he had gotten it out, but the pain persisted. Admits to going to another doctor where they numbed the foot and cleaned it with iodine prior to trying to extract the remaining toothpick. At present, he now says his big toe is starting to turn red and swell up. He admits to a history of gout and has had similar episodes in the big toe, thought not for 5+ years. Admits to moderate tenderness to palpation of the foreign body site. Dressing remains clean dry and intact to his left foot. Denies F/C/N/V/CP/SOB Objective - Vital Signs/Intake and Output Vital Signs (last 24 hours): Temp Pulse Resp BP Pulse Ox 98.3 F 63 20 115/67 95 04/14/17 07:30 04/14/17 07:30 04/14/17 07:30 04/14/17 07:30 04/14/17 07:30 Intake and Output: 04/14/17 04/14/17 06:59 18:59 Intake Total 720 Output Total 250 Balance 470 - Medications Medications: Current Medications Acetaminophen (Tylenol 325mg Tab) 650 mg PO Q4H PRN PRN Reason: Pain, Mild (1-3) Heparin Sodium (Porcine) (Heparin) 5,000 units SC Q12 [facility] PRN Reason: Protocol Last Admin: 04/13/17 21:30 Dose: Not Given Vancomycin HCl (Vancomycin 1gm) 1 gm in 250 mls @ 167 mls/hr IVPB Q12H [facility] PRN Reason: Protocol Last Admin: 04/14/17 05:36 Dose: 167 mls/hr Ampicillin Sodium/Sulbactam (Sodium 3 gm/ Sodium Chloride) 100 mls @ 200 mls/ hr IVPB Q6 [facility] PRN Reason: Protocol Last Admin: 04/14/17 05:36 Dose: 200 mls/hr Indomethacin (Indocin) 25 mg PO TID [facility] Last Admin: 04/13/17 17:14 Dose: 25 mg Lorazepam (Ativan) 2 mg PO HS [facility] PRN Reason: Protocol Last Admin: 04/13/17 22:58 Dose: 2 mg Pantoprazole Sodium (Protonix Ec Tab) 40 mg PO 0600 [facility] Last Admin: 04/14/17 05:36 Dose: 40 mg Tamsulosin HCl (Flomax) 0.4 mg PO DAILY [facility] Last Admin: 04/13/17 09:51 Dose: 0.4 mg - Labs Labs: 04/13/17 11:40 04/14/17 06:30 - Constitutional Appears: Well, Non-toxic, No Acute Distress - Extremities Exam Additional comments: Left lower extremity focused examination: Derm: Plantar forefoot entry point noted proximal to 3rd inter-metatarsal space. Mild serosanguinous drainage elicited with application of pressure. Kiesha wound negative for erythema. Streaking linear cellulitic skin changes extending proximally into plantar medial arch. No malodor present. Otherwise no open lesions, macerations, or hyperkeratotic lesions Vasc: DP and PT pulses fully palpable 1/4. Pedal hair growth noted to dorsum of foot. Skin temperature runs warm to warm from proximal to distal. Neuro: Protective sensation grossly intact. Ortho: Tenderness to 1st MTPJ range of motion. Pedal muscle strength and tone within normal limits. No gross deformities noted. - Neurological Exam Neurological Exam: Alert, Awake, Oriented x3 - Psychiatric Exam Psychiatric exam: Normal Affect, Normal Mood Assessment and Plan - Assessment and Plan (Free Text) Assessment: 76 year old male with 1) left foot foreign body puncture wound and localized cellulitis 2) left foot acute gout attack Plan: Pt seen and evaluated with attending, Dr. Mai Chart, labs, and vitals reviewed - afebrile, WBC 8.6 down from 12.1 on admission Uric acid 6.9 (WNL) Wound Cx prelim shows no growth X-ray results- left plantar foot subcutaneous space shows multiple small radio- dense foreign bodies, localized to small area. Cleansed left foot wound site with saline and dressed with Exuderm and DSD Await recs for IV abx - Vanco trough elevated today Pt to go to OR this afternoon for I&D of L foot plantar space All risks, benefits and alternatives discussed with patient Pt agreeable to surgery with all questions answered and addressed NPO order placed starting with breakfast Podiatry will continue to follow this patient while in house <Odalys Godoy - Last Filed: 04/14/17 16:15> Objective - Vital Signs/Intake and Output Vital Signs (last 24 hours): Temp Pulse Resp BP Pulse Ox 98.4 F 82 18 155/75 H 98 04/14/17 15:44 04/14/17 15:44 04/14/17 15:44 04/14/17 15:44 04/14/17 15:44 Intake and Output: 04/14/17 04/14/17 06:59 18:59 Intake Total 720 Output Total 250 Balance 470 - Medications Medications: Current Medications Acetaminophen (Tylenol 325mg Tab) 650 mg PO Q4H PRN PRN Reason: Pain, Mild (1-3) Heparin Sodium (Porcine) (Heparin) 5,000 units SC Q12 [facility] PRN Reason: Protocol Last Admin: 04/14/17 10:31 Dose: Not Given Vancomycin HCl (Vancomycin 1gm) 1 gm in 250 mls @ 167 mls/hr IVPB Q12H [facility] PRN Reason: Protocol Last Admin: 04/14/17 05:36 Dose: 167 mls/hr Ampicillin Sodium/Sulbactam (Sodium 3 gm/ Sodium Chloride) 100 mls @ 200 mls/ hr IVPB Q6 [facility] PRN Reason: Protocol Last Admin: 04/14/17 12:28 Dose: 200 mls/hr Indomethacin (Indocin) 25 mg PO TID [facility] Last Admin: 04/14/17 10:31 Dose: Not Given Ketorolac Tromethamine (Toradol) 15 mg IVP Q6H PRN PRN Reason: Pain, severe (8-10) Lorazepam (Ativan) 2 mg PO HS [facility] PRN Reason: Protocol Last Admin: 04/13/17 22:58 Dose: 2 mg Pantoprazole Sodium (Protonix Ec Tab) 40 mg PO 0600 [facility] Last Admin: 04/14/17 05:36 Dose: 40 mg Tamsulosin HCl (Flomax) 0.4 mg PO DAILY [facility] Last Admin: 04/13/17 09:51 Dose: 0.4 mg - Labs Labs: 04/14/17 09:05 04/14/17 06:30 PT 12.3 SECONDS (9.4-12.5) 04/14/17 09:05 INR 1.07 (0.93-1.08) 04/14/17 09:05 APTT 29.1 Seconds (25.1-36.5) 04/14/17 09:05 Attending/Attestation - Attestation I have personally seen and examined this patient.: Yes I have fully participated in the care of the patient.: Yes I have reviewed all pertinent clinical information, including history, physical exam and plan: Yes Notes (Text): 04/14/17 16:12 76 year old male with past medical history of CAD and BPH who presented with left foot cellulitis. Xray of the foot also showed foreign body. Podiatry is following and plan is OR today. Continue with iv antibiotics. Patient is also on indomethacin for possible gout. Odalys Godoy MD Hospitalist.
[2017-04-14 09:16] LABS: HEMOGLOBIN 11.3 g/dL (14.0-18.0); MEAN CELL VOLUME 93.7 fl (80.0-105.0); MEAN CORPUSCULAR HGB CONC 33.1 g/dl (31.0-37.0); MEAN PLATELET VOLUME 10.9 fl (7.0-11.0); RBC 3.64 10^6/uL (3.5-6.1); RED CELL DISTRIBUTION WIDTH 12.6 % (11.5-14.5); WHITE BLOOD COUNT 6.5 10^3/ul (4.5-11.0)
[2017-04-14 09:21] LABS: INR 1.07 (0.93-1.08); PARTIAL THROMBOPLASTIN TIME 29.1 Seconds (25.1-36.5); PROTHROMBIN TIME 12.3 SECONDS (9.4-12.5)
--- NOTE | 2017-04-14 09:57 | RAD ---
HISTORY: Pre-Op COMPARISON: 01/25/2014. FINDINGS: LUNGS: The lungs are well inflated and clear. PLEURA: No significant pleural effusion identified, no pneumothorax apparent. CARDIOVASCULAR: Normal. OSSEOUS STRUCTURES: No significant abnormalities. VISUALIZED UPPER ABDOMEN: Normal. OTHER FINDINGS: None. IMPRESSION: No active pulmonary disease.
--- NOTE | 2017-04-14 13:29 | CP.PCM.PN ---
<Hayley Lilly - Last Filed: 04/14/17 13:57> Subjective - Date & Time of Evaluation Date of Evaluation: 04/14/17 Time of Evaluation: 13:24 - Subjective Subjective: Hayley Lilly, PGY1, Medicine Progress Note for Dr Godoy: Patient seen and examined at bedside. No acute events overnight. Pt denies any fever, chills, nausea, vomiting, drainage from left foot. States that his pain at left foot is improved since admission. Pt scheduled to go to OR with podiatry for removal of foreign object in left foot in the afternoon. Objective - Vital Signs/Intake and Output Vital Signs (last 24 hours): Temp Pulse Resp BP Pulse Ox 98.3 F 63 20 115/67 95 04/14/17 07:30 04/14/17 07:30 04/14/17 07:30 04/14/17 07:30 04/14/17 07:30 Intake and Output: 04/14/17 04/14/17 06:59 18:59 Intake Total 720 Output Total 250 Balance 470 - Medications Medications: Current Medications Acetaminophen (Tylenol 325mg Tab) 650 mg PO Q4H PRN PRN Reason: Pain, Mild (1-3) Heparin Sodium (Porcine) (Heparin) 5,000 units SC Q12 KEVIN PRN Reason: Protocol Last Admin: 04/14/17 10:31 Dose: Not Given Vancomycin HCl (Vancomycin 1gm) 1 gm in 250 mls @ 167 mls/hr IVPB Q12H KEVIN PRN Reason: Protocol Last Admin: 04/14/17 05:36 Dose: 167 mls/hr Ampicillin Sodium/Sulbactam (Sodium 3 gm/ Sodium Chloride) 100 mls @ 200 mls/ hr IVPB Q6 KEVIN PRN Reason: Protocol Last Admin: 04/14/17 12:28 Dose: 200 mls/hr Indomethacin (Indocin) 25 mg PO TID [facility] Last Admin: 04/14/17 10:31 Dose: Not Given Ketorolac Tromethamine (Toradol) 15 mg IVP Q6H PRN PRN Reason: Pain, severe (8-10) Lorazepam (Ativan) 2 mg PO HS KEVIN PRN Reason: Protocol Last Admin: 04/13/17 22:58 Dose: 2 mg Pantoprazole Sodium (Protonix Ec Tab) 40 mg PO 0600 [facility] Last Admin: 04/14/17 05:36 Dose: 40 mg Tamsulosin HCl (Flomax) 0.4 mg PO DAILY [facility] Last Admin: 04/13/17 09:51 Dose: 0.4 mg - Labs Labs: 04/14/17 09:05 04/14/17 06:30 PT 12.3 SECONDS (9.4-12.5) 04/14/17 09:05 INR 1.07 (0.93-1.08) 04/14/17 09:05 APTT 29.1 Seconds (25.1-36.5) 04/14/17 09:05 - Additional Findings Additional findings: - Constitutional Appears: Non-toxic, No Acute Distress - Head Exam Head Exam: ATRAUMATIC, NORMAL INSPECTION, NORMOCEPHALIC - Eye Exam Eye Exam: EOMI, Normal appearance, PERRL Pupil Exam: NORMAL ACCOMODATION, PERRL - ENT Exam ENT Exam: Mucous Membranes Moist, Normal Exam - Neck Exam Neck Exam: Full ROM, Normal Inspection. absent: Lymphadenopathy - Respiratory Exam Respiratory Exam: Clear to Ausculation Bilateral, NORMAL BREATHING PATTERN. absent: Accessory Muscle Use, Chest Wall Tenderness, Decreased Breath Sounds, Prolonged Expiratory Phase, Rales, Rhonchi, Wheezes, Respiratory Distress, Stridor - Cardiovascular Exam Cardiovascular Exam: REGULAR RHYTHM, RRR, +S1, +S2. absent: Bradycardia, Tachycardia, Clicks, Diastolic murmur, Gallop, Irregular Rhythm, JVD, Rubs, +S4 , Murmur - GI/Abdominal Exam GI & Abdominal Exam: Soft, Normal Bowel Sounds. absent: Bruit, Distended, Firm , Guarding, Rigid, Tenderness, Diminished Bowel Sounds, Hernia, Hyperactive Bowel Sounds, Hypoactive Bowel Sounds, Organomegaly, Pulsatile Mass, Rebound, Mass - Extremities Exam Extremities Exam: Full ROM, Normal Capillary Refill, Tenderness (LLE). absent: Calf Tenderness, Joint Swelling, Normal Inspection, Pedal Edema. Left foot podagra noted - swelling, erythema, tender to touch. Left foot cellulitis covered in dressing, c/d/i. No purulent discharge, induration or fluctuance appreciated. - Back Exam Back Exam: Full ROM, NORMAL INSPECTION. absent: CVA tenderness (L), CVA tenderness (R) - Neurological Exam Neurological Exam: Alert, Awake, CN II-XII Intact, Oriented x3 - Psychiatric Exam Psychiatric exam: Normal Affect, Normal Mood - Skin Skin Exam: Dry, Intact, Normal Color, Warm Assessment and Plan - Assessment and Plan (Free Text) Assessment: 76 year old male with past medical history of CAD, prolonged QT syndrome, BPH, hyperlipidemia, anxiety, and subclinical hypothyroidism presents with cellulitis of left foot. Left foot x ray Patient received Vancomycin and Rocephin in the ED. Patient will be continued on Vancomycin and Unasyn. Podiatry on board, scheduled for foreign body removal from left foot today: LLE Cellulitis -Left Foot X-Ray showing left plantar foot subcutaneous space shows multiple small radio-dense foreign bodies that are noted to be localized to a small area -Wound cultures negative -Continue IV Vancomycin and Unasyn -Vancomycin trough 18.8, therapeutic. -Continue wound care -Podiatry consulted, all recommendations appreciated. Scheduled for OR today. Acute Gout of LLE -Uric acid WNL -Indomethacin 25mg PO TID for pain control History of BPH -Continue Flomax History of Insomnia -Continue Ativan HS GI Prophylaxis: Protonix DVT Prophylaxis: Heparin Patient seen and case discussed with attending, Dr. Godoy. <Odalys Godoy - Last Filed: 04/14/17 16:32> Objective - Vital Signs/Intake and Output Vital Signs (last 24 hours): Temp Pulse Resp BP Pulse Ox 98.4 F 82 18 155/75 H 98 04/14/17 15:44 04/14/17 15:44 04/14/17 15:44 04/14/17 15:44 04/14/17 15:44 Intake and Output: 04/14/17 04/14/17 06:59 18:59 Intake Total 720 Output Total 250 Balance 470 - Medications Medications: Current Medications Acetaminophen (Tylenol 325mg Tab) 650 mg PO Q4H PRN PRN Reason: Pain, Mild (1-3) Heparin Sodium (Porcine) (Heparin) 5,000 units SC Q12 KEVIN PRN Reason: Protocol Last Admin: 04/14/17 10:31 Dose: Not Given Vancomycin HCl (Vancomycin 1gm) 1 gm in 250 mls @ 167 mls/hr IVPB Q12H KEVIN PRN Reason: Protocol Last Admin: 04/14/17 05:36 Dose: 167 mls/hr Ampicillin Sodium/Sulbactam (Sodium 3 gm/ Sodium Chloride) 100 mls @ 200 mls/ hr IVPB Q6 KEVIN PRN Reason: Protocol Last Admin: 04/14/17 12:28 Dose: 200 mls/hr Indomethacin (Indocin) 25 mg PO TID [facility] Last Admin: 04/14/17 10:31 Dose: Not Given Ketorolac Tromethamine (Toradol) 15 mg IVP Q6H PRN PRN Reason: Pain, severe (8-10) Lorazepam (Ativan) 2 mg PO HS KEVIN PRN Reason: Protocol Last Admin: 04/13/17 22:58 Dose: 2 mg Pantoprazole Sodium (Protonix Ec Tab) 40 mg PO 0600 [facility] Last Admin: 04/14/17 05:36 Dose: 40 mg Tamsulosin HCl (Flomax) 0.4 mg PO DAILY [facility] Last Admin: 04/13/17 09:51 Dose: 0.4 mg - Labs Labs: 04/14/17 09:05 04/14/17 06:30 PT 12.3 SECONDS (9.4-12.5) 04/14/17 09:05 INR 1.07 (0.93-1.08) 04/14/17 09:05 APTT 29.1 Seconds (25.1-36.5) 04/14/17 09:05 Attending/Attestation - Attestation I have personally seen and examined this patient.: Yes I have fully participated in the care of the patient.: Yes I have reviewed all pertinent clinical information, including history, physical exam and plan: Yes Notes (Text): 04/14/17 16:32 76 year old male with past medical history of CAD and BPH who presented with left foot cellulitis. Xray of the foot also showed foreign body. Podiatry is following and plan is OR today. Continue with iv antibiotics. Patient is also on indomethacin for possible gout. Odalys Godoy MD Hospitalist.
--- NOTE | 2017-04-14 13:59 | CARD ---
APPROVED REPORT EKG Measurement Heart [id number] <Conclusion> Normal sinus rhythm Normal ECG
--- NOTE | 2017-04-14 15:07 | CON ---
DATE: 04/14/2017 CARDIOLOGY CONSULTATION HISTORY OF PRESENT ILLNESS: The patient is a 76-year-old male who presents with cellulitis of the left lower extremity. This was preceded by trauma to the lower extremity. PAST MEDICAL HISTORY: Notable for cardiac workup in the past that included an echocardiogram and a cardiac catheterization in 2012, which revealed good LV function and nonobstructive CAD. His cardiac risk factors includes active smoking. SOCIAL HISTORY: The patient continues to smoke. REVIEW OF SYSTEMS: A 14-point review of systems was reviewed in detail. No cardiac symptomatology was noted. No angina, no shortness of breath, no edema. His exercise tolerance was normal, which includes in the ability to climb two flights of stairs PHYSICAL EXAMINATION VITAL SIGNS: Blood pressure 115/67, heart rates in the 60s. NECK: Negative JVD. LUNGS: Without rales. HEART: S1 and S2. EXTREMITIES: Without edema. LABORATORY DATA: EKG is unremarkable. Hemoglobin is 11.3. Chemistries: BUN and creatinine are normal. Glucose is 136. IMPRESSION AND PLAN: 1. Cellulitis. 2. Nicotine addiction. 3. Diabetes mellitus. 4. Anemia. Given these findings, there are no cardiac contraindications of his planned surgery for debridement of the lower extremity. Denny Alvarado MD
[2017-04-14] MEDS ORDERED: Lidocaine 2% Inj (20ml) ONE ×2 (15:35→16:29)
[2017-04-14] MEDS ORDERED: Midazolam 2 MG/2 ML VIAL ONE (15:59)
[2017-04-14] MEDS ORDERED: Succinylcholine 200 mg/10 ml Inj IV ONE (16:02)
[2017-04-14] MEDS ORDERED: Propofol 10 mg/ml Inj (20 ML) ONE ×2 (16:02→16:14)
[2017-04-14] MEDS ORDERED: Gentamicin 80 mg/2mL Inj. ONE (16:14)
[2017-04-14] MEDS ORDERED: Naloxone 0.4 mg/ml Inj (Adult) ONE (16:16)
[2017-04-14] MEDS ORDERED: HYDROmorphone 0.5 mg/0.5 ml ISec IVP PRN (16:49)
[2017-04-14] MEDS ORDERED: Oxycodone/Acetaminophen 5/325 mg Tab PO PRN (16:51)
--- NOTE | 2017-04-14 16:54 | PCM.SURG1 ---
Surgeon's Initial Post Op Note - Surgeon's Notes Surgeon: Dr. Mai Hostess Party Sales Representative: Dr. Millicent Jimenez PGY-1 Type of Anesthesia: IV Sedation, Local Anesthesia Administered By: Dr. Aj Pre-Operative Diagnosis: left foot plantar space infection Operative Findings: see operative report. I: 15cc 2% Lidocaine plain pre-op; additional 7cc 2% Lidocaine plain intra-op. M: 03/20" iodoform packing Post-Operative Diagnosis: same Operation Performed: left foot incision and drainage Specimen/Specimens Removed: soft tissue left foot Estimated Blood Loss: EBL {In ML}: 10 Blood Products Given: N/A Drains Used: No Drains Post-Op Condition: Good Date of Surgery/Procedure: 04/14/17 Time of Surgery/Procedure: 16:00
[2017-04-14] MEDS: Oxycodone/Acetaminophen 5/325 mg Tab PO PRN (19:54)
--- NOTE | 2017-04-14 23:48 | OP ---
PROCEDURE DATE: 04/14/2017 SURGEON: Cheli Mai DPM CHIEF MINISTER: Millicent Jimenez PGY-1 ANESTHESIOLOGIST: Ngozi Aj MD ANESTHESIA: IV sedation with local. PREOPERATIVE DIAGNOSIS: Left foot, plantar midfoot abscess. POSTOPERATIVE DIAGNOSIS: Left foot, plantar midfoot abscess. NAME OF PROCEDURE: Right foot incision and drainage of abscess. INDICATIONS: The patient is a 76-year-old male with the above diagnosis. The patient has exhausted all conservative treatment at this time and now requires surgical intervention. The patient signed the consent after careful explanation of risks, benefits, complications, and alternatives for surgical procedure. No guarantees were given nor implied. N.p.o. status was confirmed prior to taking the patient to the OR. DESCRIPTION OF PROCEDURE: The patient was brought into the operating room and placed on the operating room table in a supine position. A time-out was performed for identification of the correct patient and procedure. The patient then received a total of 15 mL of 2% lidocaine plain in an ankle block fashion. Once local anesthesia was achieved, the left foot was then prepped and draped in normal sterile manner. No tourniquet was utilized during the procedure. Attention was then directed to the plantar aspect of the left forefoot where an approximately 1 cm x 1 cm circular ulceration was noted. Utilizing a #15 blade, the circumferential incision was made surrounding the ulceration, widening the margins of the plantar forefoot, opening approximately 0.5 cm additionally in size. The incision was then deepened down to the subcutaneous tissue using sterile #15 blade and hemostat. At this time, the hemostat extended proximally and medially into the plantar midfoot identifying a sinus tract from the ulceration to the plantar medial arch. Deep wound cultures were obtained and sent for pathology. Necrotic and devitalized tissue was excisionally debrided until granular bleeding tissue was noted. Utilizing the Misonix probe tool on setting #8, the plantar midfoot abscess was then copiously debrided and irrigated with gentamicin-infused saline solution. The surgical site was then packed with quarter-inch iodoform packing, sterile gauze, dry sterile dressing, and Coban. POSTOPERATIVE CONDITION: The patient tolerated the anesthesia and procedure well and was escorted to the recovery room with vital signs stable and neurovascular status intact to the left foot. This patient will be seen by Dr. Mai and Dr. Bradford while the patient remains in the hospital and we will follow up with them in the [facility] at [facility] upon discharge. Millicent Jimenez DPM Cheli Mai DPM [place]
[2017-04-15] MEDS: Oxycodone/Acetaminophen 5/325 mg Tab PO PRN ×3 (02:50→22:46)
[2017-04-15] MEDS: Vancomycin 1gm in NS 250ml 1 GM/250 ML BAG IVPB SCH ×2 (05:59→17:57)
[2017-04-15] MEDS: Pantoprazole 40 mg EC Tab PO SCH (05:59)
[2017-04-15 06:49] LABS: MEAN CELL VOLUME 93.6 fl (80.0-105.0); MEAN CORPUSCULAR HEMOGLOBIN 31.8 pg (25.0-35.0); MEAN PLATELET VOLUME 10.1 fl (7.0-11.0); RBC 3.46 10^6/uL (3.5-6.1); RED CELL DISTRIBUTION WIDTH 12.5 % (11.5-14.5)
[2017-04-15 07:15] LABS: ALB/GLOB RATIO 1.3 (1.1-1.8); ALBUMIN 3.5 g/dL (3.0-4.8); ALT/SGPT 28 U/L (7-56); AST/SGOT 26 U/L (17-59); BLOOD UREA NITROGEN 19 mg/dL (7-21); GFR AFRICAN-AMERICAN > 60; GFR NON-AFRICAN AMERICAN > 60
--- NOTE | 2017-04-15 14:15 | CP.PCM.PN ---
<Katharina Lassiter - Last Filed: 04/15/17 14:28> Subjective - Date & Time of Evaluation Date of Evaluation: 04/15/17 Time of Evaluation: 09:00 - Subjective Subjective: PGY-2 Progress note for hospitalist service Patient seen and examined at bedside. No acute distress. Nurse reports no acute events overnight. Patient states that he is doing well and that the pain is improved. He denies any fever, chills, sob, chest pain, n/v. He is tolerating diet. Patient states that he is waiting for boot for his foot. No complaints at this time. Objective - Vital Signs/Intake and Output Vital Signs (last 24 hours): Temp Pulse Resp BP Pulse Ox 98.2 F 69 20 121/73 95 04/15/17 07:30 04/15/17 07:30 04/15/17 07:30 04/15/17 07:30 04/15/17 07:30 Intake and Output: 04/15/17 04/15/17 06:59 18:59 Intake Total 240 Balance 240 - Medications Medications: Current Medications Acetaminophen (Tylenol 325mg Tab) 650 mg PO Q4H PRN PRN Reason: Pain, Mild (1-3) Heparin Sodium (Porcine) (Heparin) 5,000 units SC Q12 KEVIN PRN Reason: Protocol Last Admin: 04/15/17 10:19 Dose: 5,000 units Vancomycin HCl (Vancomycin 1gm) 1 gm in 250 mls @ 167 mls/hr IVPB Q12H KEVIN PRN Reason: Protocol Last Admin: 04/15/17 05:59 Dose: 167 mls/hr Ampicillin Sodium/Sulbactam (Sodium 3 gm/ Sodium Chloride) 100 mls @ 200 mls/ hr IVPB Q6 KEVIN PRN Reason: Protocol Last Admin: 04/15/17 12:02 Dose: 200 mls/hr Indomethacin (Indocin) 25 mg PO TID [facility] Last Admin: 04/15/17 13:48 Dose: 25 mg Lorazepam (Ativan) 2 mg PO HS KEVIN PRN Reason: Protocol Last Admin: 04/14/17 23:02 Dose: 2 mg Ondansetron HCl (Zofran Inj) 4 mg IVP ONCE PRN PRN Reason: Nausea/Vomiting Oxycodone/Acetaminophen (Percocet 5/325 Mg Tab) 1 tab PO Q4H PRN PRN Reason: Pain, moderate (4-7) Stop: 04/17/17 16:52 Last Admin: 04/15/17 10:19 Dose: 1 tab Oxycodone/Acetaminophen (Percocet 5/325 Mg Tab) 2 tab PO Q4H PRN PRN Reason: Pain, severe (8-10) Stop: 04/17/17 16:52 Pantoprazole Sodium (Protonix Ec Tab) 40 mg PO 0600 [facility] Last Admin: 04/15/17 05:59 Dose: 40 mg Tamsulosin HCl (Flomax) 0.4 mg PO DAILY [facility] Last Admin: 04/15/17 10:20 Dose: 0.4 mg - Labs Labs: 04/15/17 06:20 04/15/17 06:20 PT 12.3 SECONDS (9.4-12.5) 04/14/17 09:05 INR 1.07 (0.93-1.08) 04/14/17 09:05 APTT 29.1 Seconds (25.1-36.5) 04/14/17 09:05 - Constitutional Appears: Well, No Acute Distress - Head Exam Head Exam: ATRAUMATIC, NORMAL INSPECTION, NORMOCEPHALIC - Eye Exam Eye Exam: EOMI, Normal appearance - ENT Exam ENT Exam: Mucous Membranes Moist - Respiratory Exam Respiratory Exam: Clear to Ausculation Bilateral, NORMAL BREATHING PATTERN. absent: Decreased Breath Sounds, Rales, Rhonchi, Wheezes, Respiratory Distress - Cardiovascular Exam Cardiovascular Exam: REGULAR RHYTHM, +S1, +S2. absent: Tachycardia, Murmur - GI/Abdominal Exam GI & Abdominal Exam: Soft, Normal Bowel Sounds. absent: Distended, Firm, Guarding, Tenderness - Neurological Exam Neurological Exam: Alert, Awake, Oriented x3 - Skin Skin Exam: Dry, Intact, Normal Color, Warm Additional comments: left foot wrapped, dressing clean, dry and intact Assessment and Plan - Assessment and Plan (Free Text) Assessment: 76 year old male with past medical history of CAD, prolonged QT syndrome, BPH, hyperlipidemia, anxiety, and subclinical hypothyroidism presents with cellulitis of left foot. Patient is s/p debridment for foreign body per Podiatry. Plan: LLE Cellulitis - Left Foot X-Ray showing left plantar foot subcutaneous space shows multiple small radio-dense foreign bodies that are noted to be localized to a small area - s/p foreign body removal day 1 - Wound cultures negative - Continue IV Vancomycin and Unasyn - Vancomycin trough 18.8, 04/14, therapeutic. - Continue wound care - Podiatry consulted, recommend speciality boot Acute Gout of LLE - Uric acid WNL - Indomethacin 25mg PO TID for pain control History of BPH - Continue Flomax History of Insomnia - Continue Ativan HS GI Prophylaxis: Protonix DVT Prophylaxis: Heparin <Odalys Godoy - Last Filed: 04/15/17 14:52> Objective - Vital Signs/Intake and Output Vital Signs (last 24 hours): Temp Pulse Resp BP Pulse Ox 98.2 F 69 20 121/73 95 04/15/17 07:30 04/15/17 07:30 04/15/17 07:30 04/15/17 07:30 04/15/17 07:30 Intake and Output: 04/15/17 04/15/17 06:59 18:59 Intake Total 240 480 Output Total 300 Balance 240 180 - Medications Medications: Current Medications Acetaminophen (Tylenol 325mg Tab) 650 mg PO Q4H PRN PRN Reason: Pain, Mild (1-3) Heparin Sodium (Porcine) (Heparin) 5,000 units SC Q12 KEVIN PRN Reason: Protocol Last Admin: 04/15/17 10:19 Dose: 5,000 units Vancomycin HCl (Vancomycin 1gm) 1 gm in 250 mls @ 167 mls/hr IVPB Q12H KEVIN PRN Reason: Protocol Last Admin: 04/15/17 05:59 Dose: 167 mls/hr Ampicillin Sodium/Sulbactam (Sodium 3 gm/ Sodium Chloride) 100 mls @ 200 mls/ hr IVPB Q6 KEVIN PRN Reason: Protocol Last Admin: 04/15/17 12:02 Dose: 200 mls/hr Indomethacin (Indocin) 25 mg PO TID [facility] Last Admin: 04/15/17 13:48 Dose: 25 mg Lorazepam (Ativan) 2 mg PO HS KEVIN PRN Reason: Protocol Last Admin: 04/14/17 23:02 Dose: 2 mg Ondansetron HCl (Zofran Inj) 4 mg IVP ONCE PRN PRN Reason: Nausea/Vomiting Oxycodone/Acetaminophen (Percocet 5/325 Mg Tab) 1 tab PO Q4H PRN PRN Reason: Pain, moderate (4-7) Stop: 04/17/17 16:52 Last Admin: 04/15/17 10:19 Dose: 1 tab Oxycodone/Acetaminophen (Percocet 5/325 Mg Tab) 2 tab PO Q4H PRN PRN Reason: Pain, severe (8-10) Stop: 04/17/17 16:52 Pantoprazole Sodium (Protonix Ec Tab) 40 mg PO 0600 [facility] Last Admin: 04/15/17 05:59 Dose: 40 mg Tamsulosin HCl (Flomax) 0.4 mg PO DAILY [facility] Last Admin: 04/15/17 10:20 Dose: 0.4 mg - Labs Labs: 04/15/17 06:20 04/15/17 06:20 PT 12.3 SECONDS (9.4-12.5) 04/14/17 09:05 INR 1.07 (0.93-1.08) 04/14/17 09:05 APTT 29.1 Seconds (25.1-36.5) 04/14/17 09:05 Attending/Attestation - Attestation I have personally seen and examined this patient.: Yes I have fully participated in the care of the patient.: Yes I have reviewed all pertinent clinical information, including history, physical exam and plan: Yes Notes (Text): 04/15/17 14:50 76 year old male with past medical history of CAD and BPH who presented with left foot cellulitis. Xray of the foot also showed foreign body. He was started on iv antibiotics and seen by podiatry. He is s/p OR procedure POD #1. Will follow up on cultures. PT evaluation was also requested. Patient is also on indomethacin for possible gout. Odalys Godoy MD Hospitalist.
--- NOTE | 2017-04-15 15:10 | CP.PCM.PN ---
<Millicent Jimenez - Last Filed: 04/15/17 15:11> Subjective - Date & Time of Evaluation Date of Evaluation: 04/15/17 Time of Evaluation: 15:04 - Subjective Subjective: 76 y/o male seen at bedside with attending Dr. Bradford 1 day s/p left foot incision and drainage of plantar abscess. Pt resting comfortably in bed at time of visit with post op dressing clean dry and intact to left foot. Pt states he has experienced mild pain since the surgery but his pain meds are controlling it very well. He has his forefoot offloading shoe and understands he must wear it at all times bearing weight. Denies F/C/N/V/CP/SOB Objective - Vital Signs/Intake and Output Vital Signs (last 24 hours): Temp Pulse Resp BP Pulse Ox 98.2 F 69 20 121/73 95 04/15/17 07:30 04/15/17 07:30 04/15/17 07:30 04/15/17 07:30 04/15/17 07:30 Intake and Output: 04/15/17 04/15/17 06:59 18:59 Intake Total 240 480 Output Total 300 Balance 240 180 - Medications Medications: Current Medications Acetaminophen (Tylenol 325mg Tab) 650 mg PO Q4H PRN PRN Reason: Pain, Mild (1-3) Heparin Sodium (Porcine) (Heparin) 5,000 units SC Q12 KEVIN PRN Reason: Protocol Last Admin: 04/15/17 10:19 Dose: 5,000 units Vancomycin HCl (Vancomycin 1gm) 1 gm in 250 mls @ 167 mls/hr IVPB Q12H KEVIN PRN Reason: Protocol Last Admin: 04/15/17 05:59 Dose: 167 mls/hr Ampicillin Sodium/Sulbactam (Sodium 3 gm/ Sodium Chloride) 100 mls @ 200 mls/ hr IVPB Q6 KEVIN PRN Reason: Protocol Last Admin: 04/15/17 12:02 Dose: 200 mls/hr Indomethacin (Indocin) 25 mg PO TID [facility] Last Admin: 04/15/17 13:48 Dose: 25 mg Lorazepam (Ativan) 2 mg PO HS KEVIN PRN Reason: Protocol Last Admin: 04/14/17 23:02 Dose: 2 mg Ondansetron HCl (Zofran Inj) 4 mg IVP ONCE PRN PRN Reason: Nausea/Vomiting Oxycodone/Acetaminophen (Percocet 5/325 Mg Tab) 1 tab PO Q4H PRN PRN Reason: Pain, moderate (4-7) Stop: 04/17/17 16:52 Last Admin: 04/15/17 10:19 Dose: 1 tab Oxycodone/Acetaminophen (Percocet 5/325 Mg Tab) 2 tab PO Q4H PRN PRN Reason: Pain, severe (8-10) Stop: 04/17/17 16:52 Pantoprazole Sodium (Protonix Ec Tab) 40 mg PO 0600 [facility] Last Admin: 04/15/17 05:59 Dose: 40 mg Tamsulosin HCl (Flomax) 0.4 mg PO DAILY [facility] Last Admin: 04/15/17 10:20 Dose: 0.4 mg - Labs Labs: 04/15/17 06:20 04/15/17 06:20 PT 12.3 SECONDS (9.4-12.5) 04/14/17 09:05 INR 1.07 (0.93-1.08) 04/14/17 09:05 APTT 29.1 Seconds (25.1-36.5) 04/14/17 09:05 - Constitutional Appears: Well, Non-toxic, No Acute Distress - Extremities Exam Additional comments: Left lower extremity focused exam: Vasc: DP/PT pulses palpable 2/4. Temperature gradient warm to cool. CFT < 3 sec to all digits. No pedal edema noted Derm: 1.5cm circular deep wound noted to plantar aspect of L midfoot, sub 3rd inter metatarsal space. Sanguinous drainage noted on post op bandage and on application of pressure. 1/4" packing intact to wound. No purulence, fluctuance , malodor or probe to bone present. Kiesha wound negative for erythema or cellulitic changes Neuro: Protective sensation grossly intact Ortho: Mild tenderness to palpation of left plantar midfoot wound - Neurological Exam Neurological Exam: Alert, Awake, Oriented x3 - Psychiatric Exam Psychiatric exam: Normal Affect, Normal Mood Assessment and Plan - Assessment and Plan (Free Text) Assessment: 76 y/o male with left foot plantar wound with adjacent abscess, 1 day s/p incision and drainage in OR - secondary to foreign body entry via trauma left foot Plan: Pt seen and evaluated at bedside with attending Dr. Bradford Labs and vitals reviewed- afebrile, WBC 5.0 Packing removed and wound cleansed with sterile saline Dressed wound with heavily padded dry sterile dressing Pt to remain PWB to heel with forefoot offloading shoe, which has been dispensed Pt stable for discharge from podiatry standpoint Pt instructed to follow up in the wound care center with Dr. Mai/Suzette upon discharge <Derek Bradford - Last Filed: 04/15/17 16:52> Objective - Vital Signs/Intake and Output Vital Signs (last 24 hours): Temp Pulse Resp BP Pulse Ox 98.7 F 69 18 117/72 100 04/15/17 16:00 04/15/17 16:00 04/15/17 16:00 04/15/17 16:00 04/15/17 16:00 Intake and Output: 04/15/17 04/15/17 06:59 18:59 Intake Total 240 480 Output Total 300 Balance 240 180 - Medications Medications: Current Medications Acetaminophen (Tylenol 325mg Tab) 650 mg PO Q4H PRN PRN Reason: Pain, Mild (1-3) Heparin Sodium (Porcine) (Heparin) 5,000 units SC Q12 KEVIN PRN Reason: Protocol Last Admin: 04/15/17 10:19 Dose: 5,000 units Vancomycin HCl (Vancomycin 1gm) 1 gm in 250 mls @ 167 mls/hr IVPB Q12H KEVIN PRN Reason: Protocol Last Admin: 04/15/17 05:59 Dose: 167 mls/hr Ampicillin Sodium/Sulbactam (Sodium 3 gm/ Sodium Chloride) 100 mls @ 200 mls/ hr IVPB Q6 KEVIN PRN Reason: Protocol Last Admin: 04/15/17 12:02 Dose: 200 mls/hr Indomethacin (Indocin) 25 mg PO TID [facility]EVIN Last Admin: 04/15/17 13:48 Dose: 25 mg Lorazepam (Ativan) 2 mg PO HS KEVIN PRN Reason: Protocol Last Admin: 04/14/17 23:02 Dose: 2 mg Ondansetron HCl (Zofran Inj) 4 mg IVP ONCE PRN PRN Reason: Nausea/Vomiting Oxycodone/Acetaminophen (Percocet 5/325 Mg Tab) 1 tab PO Q4H PRN PRN Reason: Pain, moderate (4-7) Stop: 04/17/17 16:52 Last Admin: 04/15/17 10:19 Dose: 1 tab Oxycodone/Acetaminophen (Percocet 5/325 Mg Tab) 2 tab PO Q4H PRN PRN Reason: Pain, severe (8-10) Stop: 04/17/17 16:52 Pantoprazole Sodium (Protonix Ec Tab) 40 mg PO 0600 KEVIN Last Admin: 04/15/17 05:59 Dose: 40 mg Tamsulosin HCl (Flomax) 0.4 mg PO DAILY [facility] Last Admin: 04/15/17 10:20 Dose: 0.4 mg - Labs Labs: 04/15/17 06:20 04/15/17 06:20 PT 12.3 SECONDS (9.4-12.5) 04/14/17 09:05 INR 1.07 (0.93-1.08) 04/14/17 09:05 APTT 29.1 Seconds (25.1-36.5) 04/14/17 09:05 Attending/Attestation - Attestation I have personally seen and examined this patient.: Yes I have fully participated in the care of the patient.: Yes I have reviewed all pertinent clinical information, including history, physical exam and plan: Yes
--- NOTE | 2017-04-15 18:33 | PN ---
DATE: 04/15/2017 SUBJECTIVE: The patient is status post surgery on lower extremity. PHYSICAL EXAMINATION: VITAL SIGNS: Blood pressure 121/73. HEART RATE: In the 60s. NECK: Negative JVD. LUNGS: Without rales. HEART: With S1, S2. EXTREMITIES: Without edema. LABORATORY DATA: As noted. IMPRESSION: 1. Abscess in the lower extremity. 2. Nicotine addiction. 3. Diabetes mellitus. 4. Anemia. PLAN: Given these findings, the patient tolerated the procedure well. Denny Alvarado MD
[2017-04-16] MEDS: Pantoprazole 40 mg EC Tab PO SCH (05:28)
[2017-04-16] MEDS: Oxycodone/Acetaminophen 5/325 mg Tab PO PRN (05:30)
[2017-04-16] MEDS: Vancomycin 1gm in NS 250ml 1 GM/250 ML BAG IVPB SCH (05:36)
[2017-04-16 07:14] LABS: HEMOGLOBIN 11.2 g/dL (14.0-18.0); MEAN CELL VOLUME 92.7 fl (80.0-105.0); MEAN CORPUSCULAR HEMOGLOBIN 31.3 pg (25.0-35.0); MEAN CORPUSCULAR HGB CONC 33.7 g/dl (31.0-37.0); MEAN PLATELET VOLUME 10.6 fl (7.0-11.0); RBC 3.58 10^6/uL (3.5-6.1); RED CELL DISTRIBUTION WIDTH 12.4 % (11.5-14.5)
[2017-04-16 07:33] VITALS: BP 146/74; PULSE 71; RESP 20; TEMP 97.9; O2SAT 94
--- NOTE | 2017-04-16 11:31 | RAD ---
PROCEDURE: Left Foot Radiographs. HISTORY: s/p surgery COMPARISON: None. FINDINGS: BONES: Normal. No fracture. JOINTS: Normal. SOFT TISSUES: Normal. OTHER FINDINGS: None. IMPRESSION: Normal left foot radiographs.
--- NOTE | 2017-04-16 13:20 | PN ---
DATE: 04/16/2017 SUBJECTIVE: This is a 76-year-old male seen at bedside, status post one and a half days I and D of his left foot for abscess. The patient states that he has small amount of pain; however, he denies any fever, chills, shortness of breath or chest pain. The patient received his off-loading shoe and has been taught how to use the shoe by physical therapy. MEDICATIONS: The patient's medications are noted on the MAR. He is presently on Unasyn by Infectious Disease. ALLERGIES: HE HAS NO KNOWN DRUG ALLERGIES. PHYSICAL EXAMINATION: VITAL SIGNS: His vital signs were reviewed. Temperature is 97.9. His blood pressure is 146/74, and his respirations are 20. EXTREMITIES: Clinically, his foot was inspected. The dressing was intact and it was removed and his neurovascular status was unchanged. He has palpable pedal pulses and sensation to the foot is intact. His wound on the plantar aspect is clean, but deep, it measures at 0.5 x 0.5 x 0.6 cm in depth. The tissue when the wound that is clean, it is fibrous. There is no granulation in the sinus tract and the streaking that was into the medial arch has now resolved. There is a little bit of bruising in the arch from where we cleaned the sinus tract during the surgery. There is no pus coming from the wound. The edema has come down and there is no longer any cellulitis. The foot is warm to touch, but not hot. He has capillary refill to all of his digits. DATABASE: Review of his cultures shows that there is no growth in his wound culture and that was clean culture after we cleanse and irrigated the patient. LABORATORY DATA: The patient's labs were also reviewed. His white blood cell count is now 4 and that is down from 12.1 upon admission on 04/12/2017. The patient's chemistry is grossly within normal except for his glucose, which yesterday was 123 and upon admission it was 191. The patient is not on any medications for diabetes and for consistent blood glucoses, he is advised to see his primary care for follow up of running high glucose. ASSESSMENT: Hernandez III ulceration to the plantar foot, even though the patient is not diabetic, I do not classify this as a diabetic wound since his glucoses are consistently high. PLAN OF TREATMENT: The patient's packing of wound was flushed with saline, it was repacked and I instructed the patient on how to do the dressing, he states that his can help him. I am going to call visiting nurses to come in and make sure that the family knows how to take care of that wound. He is to walk only on his heel. He does have crutches at home. I advised him to use the crutches with the wedge shoe and do not just depend on the wedge shoe and the more he stays off the foot . He has a [facility]. Cheli Mai DPM
--- NOTE | 2017-04-16 14:21 | CP.PCM.DIS ---
<Hayley Lilly - Last Filed: 04/16/17 15:25> Provider - Provider Date of Admission: 04/12/17 10:59 Attending physician: Odalys Godoy MD Primary care physician: Javier Marie MD Consults: Sergei Time Spent in preparation of Discharge (in minutes): 35 Diagnosis - Discharge Diagnosis (1) Cellulitis of foot Status: Acute (2) Gout attack Status: Acute Hospital Course - Lab Results Lab Results: Micro Results 04/15/17 10:49 Other: Please Indicate Tissue Culture - Preliminary NO GROWTH AFTER 24 HOURS Most Recent Lab Values WBC 4.0 10^3/ul (4.5-11.0) L 04/16/17 06:30 RBC 3.58 10^6/uL (3.5-6.1) 04/16/17 06:30 Hgb 11.2 g/dL (14.0-18.0) L 04/16/17 06:30 Hct 33.2 % (42.0-52.0) L 04/16/17 06:30 MCV 92.7 fl (80.0-105.0) 04/16/17 06:30 MCH 31.3 pg (25.0-35.0) 04/16/17 06:30 MCHC 33.7 g/dl (31.0-37.0) 04/16/17 06:30 RDW 12.4 % (11.5-14.5) 04/16/17 06:30 Plt Count 266 10^3/uL (120.0-450.0) 04/16/17 06:30 Gran % 77.6 % (50.0-68.0) H 04/12/17 10:05 MPV 10.6 fl (7.0-11.0) 04/16/17 06:30 Lymph % (Auto) 11.7 % (22.0-35.0) L 04/12/17 10:05 Allen % (Auto) 10.4 % (1.0-6.0) H 04/12/17 10:05 Eos % (Auto) 0.1 % (1.5-5.0) L 04/12/17 10:05 Baso % (Auto) 0.2 % (0.0-3.0) 04/12/17 10:05 Gran # 9.36 (1.4-6.5) H 04/12/17 10:05 Lymph # 1.4 (1.2-3.4) 04/12/17 10:05 Allen # 1.3 (0.1-0.6) H 04/12/17 10:05 Eos # 0.0 (0.0-0.7) 04/12/17 10:05 Baso # 0.03 K/mm3 (0.0-2.0) 04/12/17 10:05 PT 12.3 SECONDS (9.4-12.5) 04/14/17 09:05 INR 1.07 (0.93-1.08) 04/14/17 09:05 APTT 29.1 Seconds (25.1-36.5) 04/14/17 09:05 pO2 43 mm/Hg (30-55) 04/12/17 14:00 VBG pH 7.41 (7.32-7.43) 04/12/17 14:00 VBG pCO2 42.0 (40-60) 04/12/17 14:00 VBG HCO3 26.6 mmol/l (21-28) 04/12/17 14:00 VBG Total CO2 27.9 mmol.L (22-28) 04/12/17 14:00 VBG O2 Sat (Calc) 85.7 % (40-65) H 04/12/17 14:00 VBG Base Excess 1.7 mmol/L (0.0-2.0) 04/12/17 14:00 VBG Potassium 3.9 mmol/L (3.6-5.2) 04/12/17 14:00 Sodium 136.0 mmol/L (132-148) 04/12/17 14:00 Chloride 105.0 mmol/L (98-107) 04/12/17 14:00 Glucose 171 mg/dl (75-110) H 04/12/17 14:00 Lactate 1.5 mmol/L (0.7-2.1) 04/12/17 14:00 FiO2 21.0 % 04/12/17 14:00 Sodium 144 mmol/L (132-148) 04/15/17 06:20 Potassium 4.1 mmol/L (3.6-5.0) 04/15/17 06:20 Chloride 107 mmol/L (98-107) 04/15/17 06:20 Carbon Dioxide 27 mmol/L (21-33) 04/15/17 06:20 Anion Gap 14 (10-20) 04/15/17 06:20 BUN 19 mg/dL (7-21) 04/15/17 06:20 Creatinine 1.1 mg/dl (0.8-1.5) 04/15/17 06:20 Est GFR ( Amer) > 60 04/15/17 06:20 Est GFR (Non-Af Amer) > 60 04/15/17 06:20 Random Glucose 123 mg/dL (70-110) H 04/15/17 06:20 Uric Acid 6.9 mg/dL (3.5-8.5) 04/13/17 10:00 Calcium 9.0 mg/dL (8.4-10.5) 04/15/17 06:20 Total Bilirubin 0.6 mg/dL (0.2-1.3) 04/15/17 06:20 AST 26 U/L (17-59) 04/15/17 06:20 ALT 28 U/L (7-56) 04/15/17 06:20 Alkaline Phosphatase 65 U/L (38-126) 04/15/17 06:20 Total Protein 6.2 g/dL (5.8-8.3) 04/15/17 06:20 Albumin 3.5 g/dL (3.0-4.8) 04/15/17 06:20 Globulin 2.7 gm/dL 04/15/17 06:20 Albumin/Globulin Ratio 1.3 (1.1-1.8) 04/15/17 06:20 Venous Blood Potassium 3.9 mmol/L (3.6-5.2) 04/12/17 14:00 Urine Color Yellow (YELLOW) 04/12/17 10:31 Urine Appearance Clear (CLEAR) 04/12/17 10:31 Urine pH 6.0 (4.7-8.0) 04/12/17 10:31 Ur Specific [place] 1.020 (1.005-1.035) 04/12/17 10:31 Urine Protein Negative mg/dL (<30 mg/dL) 04/12/17 10:31 Urine Glucose (UA) Negative mg/dL (NEGATIVE) 04/12/17 10:31 Urine Ketones Trace mg/dL (NEGATIVE) H 04/12/17 10:31 Urine Blood Moderate (NEGATIVE) H 04/12/17 10:31 Urine Nitrate Negative (NEGATIVE) 04/12/17 10:31 Urine Bilirubin Negative (NEGATIVE) 04/12/17 10:31 Urine Urobilinogen 0.2 E.U./dL (<1 E.U./dL) 04/12/17 10:31 Ur Leukocyte Esterase Negative Rachele/uL (NEGATIVE) 04/12/17 10:31 Urine RBC 15 - 20 /hpf (0-2) 04/12/17 10:31 Urine WBC 0 - 2 /hpf (0-6) 04/12/17 10:31 Ur Epithelial Cells None /hpf (0-5) 04/12/17 10:31 Amorphous Sediment Few 04/12/17 10:31 Urine Bacteria Many (NEG) 04/12/17 10:31 Urine Other Fiber 04/12/17 10:31 Vancomycin Trough 18.8 ug/mL (5.0-10.0) H* 04/14/17 06:30 - Hospital Course Hospital Course: 76 year old male with past medical history of CAD, prolonged QT syndrome, BPH, hyperlipidemia, anxiety, and subclinical hypothyroidism presents with painful swelling of the left foot. Patient states he stepped on a toothpick barefoot at home 1 week ago. He immediately removed the tooth pick from his skin. 3 days ago he followed up with his [employer] who cleaned the wound and dressed it. Patient states that the pain was tolerable until yesterday, although he had been walking more than he was advised to. Patient does note mild blood and drainage from wound on the bottom of his left foot. He also indicates there has been increased swelling during this time. Patient denies chest pain, shortness of breath, nausea, vomiting, diarrhea, fever, chills, headache, numbness, tingling, dysuria, constipation. Left Foot X-Ray showed multiple small radio- dense foreign bodies in left plantar subcutaneous space that are noted to be localized to a small area. Pt had I&D in the OR with podiatry with removal of foreign bodies. During the hospital course, pt also noted to have podagra, normal uric acid level, treated with Indomethacin. Pt received 4 days of IV antibiotics (Unasyn and Vancomycin). Pt's symptoms improved, discharged on waffle boot, Keflex for 5 days. Pt instructed to follow up with PMD in 1 week and also to f/u with wound care center with Dr Mai. Discharge Exam - Head Exam Head Exam: ATRAUMATIC, NORMAL INSPECTION, NORMOCEPHALIC - Eye Exam Eye Exam: EOMI, PERRL. absent: Conjunctival injection, Scleral icterus Pupil Exam: NORMAL ACCOMODATION, PERRL - ENT Exam ENT Exam: Mucous Membranes Moist - Neck Exam Neck exam: Full Rom - Respiratory Exam Respiratory Exam: Clear to PA & Lateral, UNREMARKABLE. absent: Accessory Muscle Use, Chest Wall Tenderness, Respiratory Distress, Stridor - Cardiovascular Exam Cardiovascular Exam: RRR, +S1, +S2. absent: Systolic Murmur - GI/Abdominal Exam GI & Abdominal Exam: Normal Bowel Sounds, Soft. absent: Diminished Bowel Sounds , Distended, Guarding, Mass, Organomegaly, Rebound, Tenderness - Extremities Exam Extremities exam: normal capillary refill, pedal pulses present Additional comments: left foot covered in dressing, c/d/i. waffle boot at bedside. pt ambulating well with it. - Back Exam Back exam: NORMAL INSPECTION - Neurological Exam Neurological exam: Alert, Oriented x3 - Psychiatric Exam Psychiatric exam: Normal Affect, Normal Mood - Skin Skin Exam: Dry, Normal Color, Warm Discharge Plan - Discharge Medications Prescriptions: Cephalexin [cephalexin] 500 mg PO BID 5 Days cap Indomethacin [Indocin] 25 mg PO TID 15 Days cap oxyCODONE/Acetaminophen [Percocet 5/325 mg Tab] 1 tab PO Q4H PRN 3 Days tab PRN Reason: Pain, Moderate (4-7) - Follow Up Plan Condition: FAIR Disposition: HOME/ ROUTINE Instructions: Cellulitis (DC), Cellulitis (GEN), Gout (DC) Additional Instructions: - Take Keflex for your cellulitis. - Take Percocet as needed for pain. You can also take Tylenol for pain. - Follow up with PMD in 1 week. - Follow up at wound care center with Dr Mai/Suzette in 1 week. Referrals: Javier Marie MD [Primary Care Provider] - Cheli Mai DPM [Staff Provider] - <Odalys Godoy A - Last Filed: 04/16/17 15:35> Provider - Provider Date of Admission: 04/12/17 10:59 Attending physician: Odalys Godoy MD Primary care physician: Javier Marie MD Hospital Course - Lab Results Lab Results: Micro Results 04/15/17 10:49 Other: Please Indicate Tissue Culture - Preliminary NO GROWTH AFTER 24 HOURS Most Recent Lab Values WBC 4.0 10^3/ul (4.5-11.0) L 04/16/17 06:30 RBC 3.58 10^6/uL (3.5-6.1) 04/16/17 06:30 Hgb 11.2 g/dL (14.0-18.0) L 04/16/17 06:30 Hct 33.2 % (42.0-52.0) L 04/16/17 06:30 MCV 92.7 fl (80.0-105.0) 04/16/17 06:30 MCH 31.3 pg (25.0-35.0) 04/16/17 06:30 MCHC 33.7 g/dl (31.0-37.0) 04/16/17 06:30 RDW 12.4 % (11.5-14.5) 04/16/17 06:30 Plt Count 266 10^3/uL (120.0-450.0) 04/16/17 06:30 Gran % 77.6 % (50.0-68.0) H 04/12/17 10:05 MPV 10.6 fl (7.0-11.0) 04/16/17 06:30 Lymph % (Auto) 11.7 % (22.0-35.0) L 04/12/17 10:05 Allen % (Auto) 10.4 % (1.0-6.0) H 04/12/17 10:05 Eos % (Auto) 0.1 % (1.5-5.0) L 04/12/17 10:05 Baso % (Auto) 0.2 % (0.0-3.0) 04/12/17 10:05 Gran # 9.36 (1.4-6.5) H 04/12/17 10:05 Lymph # 1.4 (1.2-3.4) 04/12/17 10:05 Allen # 1.3 (0.1-0.6) H 04/12/17 10:05 Eos # 0.0 (0.0-0.7) 04/12/17 10:05 Baso # 0.03 K/mm3 (0.0-2.0) 04/12/17 10:05 PT 12.3 SECONDS (9.4-12.5) 04/14/17 09:05 INR 1.07 (0.93-1.08) 04/14/17 09:05 APTT 29.1 Seconds (25.1-36.5) 04/14/17 09:05 pO2 43 mm/Hg (30-55) 04/12/17 14:00 VBG pH 7.41 (7.32-7.43) 04/12/17 14:00 VBG pCO2 42.0 (40-60) 04/12/17 14:00 VBG HCO3 26.6 mmol/l (21-28) 04/12/17 14:00 VBG Total CO2 27.9 mmol.L (22-28) 04/12/17 14:00 VBG O2 Sat (Calc) 85.7 % (40-65) H 04/12/17 14:00 VBG Base Excess 1.7 mmol/L (0.0-2.0) 04/12/17 14:00 VBG Potassium 3.9 mmol/L (3.6-5.2) 04/12/17 14:00 Sodium 136.0 mmol/L (132-148) 04/12/17 14:00 Chloride 105.0 mmol/L (98-107) 04/12/17 14:00 Glucose 171 mg/dl (75-110) H 04/12/17 14:00 Lactate 1.5 mmol/L (0.7-2.1) 04/12/17 14:00 FiO2 21.0 % 04/12/17 14:00 Sodium 144 mmol/L (132-148) 04/15/17 06:20 Potassium 4.1 mmol/L (3.6-5.0) 04/15/17 06:20 Chloride 107 mmol/L (98-107) 04/15/17 06:20 Carbon Dioxide 27 mmol/L (21-33) 04/15/17 06:20 Anion Gap 14 (10-20) 04/15/17 06:20 BUN 19 mg/dL (7-21) 04/15/17 06:20 Creatinine 1.1 mg/dl (0.8-1.5) 04/15/17 06:20 Est GFR ( Amer) > 60 04/15/17 06:20 Est GFR (Non-Af Amer) > 60 04/15/17 06:20 Random Glucose 123 mg/dL (70-110) H 04/15/17 06:20 Uric Acid 6.9 mg/dL (3.5-8.5) 04/13/17 10:00 Calcium 9.0 mg/dL (8.4-10.5) 04/15/17 06:20 Total Bilirubin 0.6 mg/dL (0.2-1.3) 04/15/17 06:20 AST 26 U/L (17-59) 04/15/17 06:20 ALT 28 U/L (7-56) 04/15/17 06:20 Alkaline Phosphatase 65 U/L (38-126) 04/15/17 06:20 Total Protein 6.2 g/dL (5.8-8.3) 04/15/17 06:20 Albumin 3.5 g/dL (3.0-4.8) 04/15/17 06:20 Globulin 2.7 gm/dL 04/15/17 06:20 Albumin/Globulin Ratio 1.3 (1.1-1.8) 04/15/17 06:20 Venous Blood Potassium 3.9 mmol/L (3.6-5.2) 04/12/17 14:00 Urine Color Yellow (YELLOW) 04/12/17 10:31 Urine Appearance Clear (CLEAR) 04/12/17 10:31 Urine pH 6.0 (4.7-8.0) 04/12/17 10:31 Ur Specific [place] 1.020 (1.005-1.035) 04/12/17 10:31 Urine Protein Negative mg/dL (<30 mg/dL) 04/12/17 10:31 Urine Glucose (UA) Negative mg/dL (NEGATIVE) 04/12/17 10:31 Urine Ketones Trace mg/dL (NEGATIVE) H 04/12/17 10:31 Urine Blood Moderate (NEGATIVE) H 04/12/17 10:31 Urine Nitrate Negative (NEGATIVE) 04/12/17 10:31 Urine Bilirubin Negative (NEGATIVE) 04/12/17 10:31 Urine Urobilinogen 0.2 E.U./dL (<1 E.U./dL) 04/12/17 10:31 Ur Leukocyte Esterase Negative Rachele/uL (NEGATIVE) 04/12/17 10:31 Urine RBC 15 - 20 /hpf (0-2) 04/12/17 10:31 Urine WBC 0 - 2 /hpf (0-6) 04/12/17 10:31 Ur Epithelial Cells None /hpf (0-5) 04/12/17 10:31 Amorphous Sediment Few 04/12/17 10:31 Urine Bacteria Many (NEG) 04/12/17 10:31 Urine Other Fiber 04/12/17 10:31 Vancomycin Trough 18.8 ug/mL (5.0-10.0) H* 04/14/17 06:30 Attending/Attestation - Attestation I have personally seen and examined this patient.: Yes I have fully participated in the care of the patient.: Yes I have reviewed all pertinent clinical information, including history, physical exam and plan: Yes Notes (Text): 04/16/17 15:34 76 year old male with past medical history of CAD and BPH who presented with left foot cellulitis. Xray of the foot also showed foreign body. He was started on iv antibiotics and seen by podiatry. He is s/p OR procedure POD #2. Repeat foot xray was reviewed. Patient was also on indomethacin for gout. Overall patient's symptoms have improved. He is discharged home on po antibiotics. Follow up with pmd and podiatry. Odalys Godoy MD Hospitalist.
--- NOTE | 2017-04-16 17:27 | PN ---
DATE: 04/16/2017 SUBJECTIVE: The patient is comfortable in bed. PHYSICAL EXAMINATION: VITAL SIGNS: Blood pressure 146/74, the heart rate is in the 70s. NECK: Negative JVD. LUNGS: Without rales. HEART: With S1, S2. EXTREMITIES: The left foot is bandaged. LABORATORY DATA: Hemoglobin is 11.2. Chemistries, BUN and creatinine are unremarkable. Glucose is 123. IMPRESSION: 1. Status post surgery on abscess in the left lower extremity. 2. History of diabetes mellitus. 3. Nicotine addiction. 4. Anemia. PLAN: Given these findings, I have discussed with the patient about his cardiac risk factors. After he recovers from his foot surgery, the patient would be screened for coronary artery disease. Denny Alvarado MD
[2017-04-16] MEDS ORDERED: Amoxicillin-Clav 875-125 mg Tab PO SCH (22:00)
== END 2017-04-16 15:40 | disposition home or self-care (01) | DRG 603 ==
LOC: ED 09:28 → ERH 10:59 → 5RNO 12:17
PROVIDERS: ADMIT Internal Medicine; ATTEND Internal Medicine
PROC: 0H9NXZZ Drainage of Left Foot Skin, External Approach (ICD-10-PCS; 2017-04-14)
PROC: 0HBNXZZ Excision of Left Foot Skin, External Approach (ICD-10-PCS; principal; 2017-04-14 15:30)
DX: L03.116 Cellulitis of left lower limb (principal); L97.929 Non-pressure chronic ulcer of unspecified part of left lower leg with unspecified severity; E11.622 Type 2 diabetes mellitus with other skin ulcer; L02.612 Cutaneous abscess of left foot; I10 Essential (primary) hypertension; I25.10 Atherosclerotic heart disease of native coronary artery without angina pectoris; K21.9 Gastro-esophageal reflux disease without esophagitis; M10.9 Gout, unspecified; H91.90 Unspecified hearing loss, unspecified ear; G47.00 Insomnia, unspecified; F17.210 Nicotine dependence, cigarettes, uncomplicated; E78.5 Hyperlipidemia, unspecified; E03.9 Hypothyroidism, unspecified; D64.9 Anemia, unspecified; N40.0 Benign prostatic hyperplasia without lower urinary tract symptoms; S91.339A Puncture wound without foreign body, unspecified foot, initial encounter; S90.852A Superficial foreign body, left foot, initial encounter; W45.8XXA Other foreign body or object entering through skin, initial encounter; Z87.01 Personal history of pneumonia (recurrent)

== ENCOUNTER 2017-06-26 00:27 | Observation (INO) | payer MEDICARE, BC ==
[2017-06-26 00:27] VITALS: BMI 24.0
--- NOTE | 2017-06-26 00:42 | ED PDOC ---
Arrival/HPI - General Time Seen by Provider: 06/26/17 00:29 Historian: Patient - History of Present Illness Narrative History of Present Illness (Text): 06/26/17 00:40 Pedro Luis Cash is a 76 year old male, whose past medical history includes CAD , hypertension, DVT, and diabetes, who presents to the Emergency department complaining of chest pain. Patient states he has been experiencing shortness of breath with associated chest pressure since yesterday evening. Patient states pain is worse with deep inspiration and he feels like he can not take a deep breath. Patient reports he is not currently on any anti-coagulation and notes he recently underwent surgery on his left foot. Patient denies any fever, chills , nausea, vomiting, diarrhea, urinary symptoms, back pain, neck pain, headache, dizziness, or any other complaints. PMD: Dr. Obrien Symptom Onset: Gradual Symptom Course: Unchanged Activities at Onset: Light Context: Home Past Medical History - Provider Review Nursing Documentation Reviewed: Yes - Infectious Disease Hx of Infectious Diseases: None - Tetanus Immunization Tetanus Immunization: Unknown - Cardiac Hx Hypertension: Yes - Pulmonary Hx Pneumonia: Yes - Neurological Hx Transient Ischemic Attacks (TIA): Yes (PATIENT DENIES) - HEENT Hx HEENT Disorder: Yes (WEARS RX GLASSES) Hx Deafness: Yes (BILATERAL EARS) - Renal Hx Renal Disorder: No - Endocrine/Metabolic Hx Endocrine Disorders: Yes (DM -BORDERLINE) - Hematological/Oncological Hx Blood Transfusions: No Hx Blood Transfusion Reaction: No - Integumentary Hx Dermatological Disorder: No - Musculoskeletal/Rheumatological Hx Arthritis: No - Gastrointestinal Hx Gastrointestinal Disorders: Yes (INGUINAL HERNIA) Hx Gastroesophageal Reflux: Yes - Genitourinary/Gynecological Hx Genitourinary Disorders: Yes Hx Prostate Problems: Yes (BPH) - Psychiatric Hx Anxiety: Yes Hx Depression: No Hx Substance Use: No - Past Surgical History Past Surgical History: Non-Contributing - Surgical History Hx Cardiac Catheterization: Yes - Anesthesia Hx Anesthesia Reactions: No Hx Malignant Hyperthermia: No - Suicidal Assessment Feels Threatened In Home Enviroment: No Family/Social History - Physician Review Nursing Documentation Reviewed: Yes Family/Social History: Unknown Family HX Smoking Status: Never Smoked Hx Alcohol Use: No Hx Substance Use: No Hx Substance Use Treatment: No Allergies/Home Meds Allergies/Adverse Reactions: Allergies No Known Allergies Allergy (Verified 06/26/17 00:37) Home Medications: Home Meds Medication Instructions Recorded Confirmed Lorazepam [Ativan] 2 mg PO HS 01/03/13 06/26/17 Silodosin [Rapaflo] 8 mg PO DAILY 01/03/13 04/12/17 Dutasteride [Avodart] 0.5 mg PO DAILY 04/12/17 04/12/17 Review of Systems - Physician Review All systems were reviewed & negative as marked: Yes - Review of Systems Constitutional: Normal. absent: Fevers Eyes: Normal ENT: Normal Respiratory: SOB. absent: Cough Cardiovascular: Chest Pain Gastrointestinal: Normal. absent: Abdominal Pain, Diarrhea, Nausea, Vomiting Genitourinary Male: Normal. absent: Dysuria, Frequency, Hematuria, Urinary Output Changes Musculoskeletal: Normal. absent: Back Pain, Neck Pain Skin: Normal. absent: Rash Neurological: Normal. absent: Headache, Dizziness Endocrine: Normal Hemo/Lymphatic: Normal Psychiatric: Normal Physical Exam Vital Signs Reviewed: Yes Vital Signs Temp Pulse Pulse Pulse Pulse Pulse Resp 06/26/17 06:11 76 76 76 76 76 20 06/26/17 06:09 82 18 06/26/17 04:03 82 22 06/26/17 02:07 99 H 19 06/26/17 00:37 99.3 F 87 22 BP Pulse Ox 06/26/17 06:11 108/64 06/26/17 06:09 116/59 L 97 06/26/17 04:03 123/63 98 06/26/17 02:07 126/69 98 06/26/17 00:37 129/73 98 Temperature: Afebrile Blood Pressure: Normal Pulse: Regular Respiratory Rate: Normal Appearance: Positive for: Well-Appearing, Non-Toxic, Comfortable Pain Distress: None Mental Status: Positive for: Alert and Oriented X 3 - Systems Exam Head: Present: Atraumatic, Normocephalic Pupils: Present: PERRL Extroacular Muscles: Present: EOMI Conjunctiva: Present: Normal Mouth: Present: Moist Mucous Membranes Neck: Present: Normal Range of Motion Respiratory/Chest: Present: Clear to Auscultation, Good Air Exchange. No: Respiratory Distress, Accessory Muscle Use Cardiovascular: Present: Regular Rate and Rhythm, Normal S1, S2. No: Murmurs Abdomen: No: Tenderness, Distention, Peritoneal Signs Back: Present: Normal Inspection Upper Extremity: Present: Normal Inspection. No: Cyanosis, Edema Lower Extremity: Present: Normal Inspection. No: Edema Neurological: Present: GCS=15, CN II-XII Intact, Speech Normal Skin: Present: Warm, Dry, Normal Color. No: Rashes Psychiatric: Present: Alert, Oriented x 3, Normal Insight, Normal Concentration Medical Decision Making ED Course and Treatment: 06/26/17 00:40 Impression: 76 year old male complaining of shortness of breath and chest pressure since yesterday afternoon. Plan: -- CTA Chest -- EKG -- Labs, cardiac enzymes -- UA -- Reassess and disposition Prior Visits: Notes and results from previous visits were reviewed. Progress Notes: Reviewed EKG, NSR at [address]-segment elevations or depressions, no T-wave inversions, normal intervals. 06/26/17 03:25 CTA Chest shows: Pulmonary arteries: Unremarkable. No pulmonary embolism. Aorta: No acute findings. No thoracic aortic aneurysm. Lungs: Bilateral lower lobe groundglass opacities secondary to atelectasis or infiltrate. Pleural space: Unremarkable. No significant effusion. No pneumothorax. Heart: Coronary artery calcification. No significant pericardial effusion. No evidence of RV dysfunction. Bones/joints: No acute fracture. No dislocation. Soft tissues: Unremarkable. Lymph nodes: Unremarkable. No enlarged lymph nodes. Kidneys and ureters: There is a simple cyst in the right kidney. IMPRESSION: No pulmonary embolism. Bilateral lower lobe groundglass opacities secondary atelectasis or infiltrate 06/26/17 04:52 Case discussed with medical office receptionist assistant health economist, who is aware and agrees with plan. 06/26/17 04:[address] Edgar Herbert, who is aware and agrees with plan. Accepts pt in to hospitalist service. Pt will go to Telemetry observation for chest pain. - Lab Interpretations Lab Results: 06/26/17 00:38 06/26/17 00:38 Lab Results 06/26/17 01:10: Urine Color Yellow, Urine Appearance Clear, Urine pH 6.0, Ur Specific [place] 1.020, Urine Protein Negative, Urine Glucose (UA) Negative, Urine Ketones Negative, Urine Blood Small H, Urine Nitrate Negative, Urine Bilirubin Negative, Urine Urobilinogen 0.2, Ur Leukocyte Esterase Negative, Urine RBC 2 - 5, Urine WBC 0 - 2, Ur Epithelial Cells 0 - 2 06/26/17 00:38: TSH 3rd Generation 7.23 H 06/26/17 00:38: Hemoglobin A1c 6.1 06/26/17 00:38: PT 11.0, INR 0.97, APTT 30.1 06/26/17 00:38: Sodium 140, Potassium 4.2, Chloride 103, Carbon Dioxide 29, Anion Gap 12, BUN 25 H, Creatinine 1.1, Est GFR ( Amer) > 60, Est GFR ( Non-Af Amer) > 60, Random Glucose 148 H, Calcium 9.8, Magnesium 1.8, Total Bilirubin 0.3, AST 36, ALT 28, Alkaline Phosphatase 76, Lactate Dehydrogenase 391, Total Creatine Kinase 58, Troponin I < 0.01, Total Protein 6.8, Albumin 3.9 , Globulin 2.8, Albumin/Globulin Ratio 1.4 06/26/17 00:38: WBC 12.4 H D, RBC 3.96, Hgb 12.3 L, Hct 36.3 L, MCV 91.7, MCH 31.1, MCHC 33.9, RDW 13.1, Plt Count 285, MPV 10.8, Gran % 84.8 H, Lymph % (Auto ) 7.2 L, [place] % (Auto) 7.2 H, Eos % (Auto) 0.6 L, Baso % (Auto) 0.2, Gran # 10.53 H, Lymph # (Auto) 0.9 L, [place] # (Auto) 0.9 H, Eos # (Auto) 0.1, Baso # ( Auto) 0.03 I have reviewed the lab results: Yes - RAD Interpretation Radiology Orders: 06/26/17 00:44 ANGIO CHEST PE PROTOCOL [CT] Stat Manager Of Hospital: Radiologist - EKG Interpretation Interpreted by ED Physician: Yes Type: 12 lead EKG - Medication Orders Current Medication Orders: Discontinued Medications Aspirin (Aspirin) 325 mg PO STAT STA Stop: 06/26/17 05:18 Last Admin: 06/26/17 05:27 Dose: 325 mg Aspirin (Aspirin Chewable) 81 mg PO DAILY [facility] Last Admin: 06/27/17 09:04 Dose: 81 mg Atorvastatin Calcium (Lipitor) 10 mg PO DIN [facility] Last Admin: 06/26/17 17:36 Dose: 10 mg Atorvastatin Calcium (Lipitor) 40 mg PO STAT STA Stop: 06/26/17 05:18 Last Admin: 06/26/17 05:27 Dose: 40 mg Clonazepam (Klonopin) 2 mg PO STAT STA PRN Reason: Protocol Stop: 06/26/17 06:02 Last Admin: 06/26/17 07:01 Dose: Not Given Non-Admin Reason: NPO Behavioural Document 06/26/17 07:01 GC (Rec: 06/26/17 07:02 GC [id number]) Maintenance Maintenance Dose No Nonmedicinal Nonmedicinal Interventions Redirect Therapeutic Communication Activity Behavior Behavior for Medication: Anxiety Famotidine (Pepcid) 20 mg PO 1000,2200 KEVIN Last Admin: 06/27/17 09:04 Dose: 20 mg Azithromycin (Zithromax 500mg In Ns) 500 mg in 250 mls @ 167 mls/hr IVPB STAT STA PRN Reason: Protocol Stop: 06/26/17 05:00 Last Admin: 06/26/17 03:55 Dose: 167 mls/hr eMAR Start Stop Document 06/26/17 03:55 CNR (Rec: 06/26/17 03:56 CNR [id number]) Intravenous Solution Start Date 06/26/17 Start Time 03:55 End Date 06/26/17 End time 05:25 Total Infusion Time 90 Levofloxacin/Dextrose (Levaquin 500mg) 500 mg in 100 mls @ 100 mls/hr IVPB DAILY KEVIN PRN Reason: Protocol Last Admin: 06/27/17 09:04 Dose: 100 mls/hr eMAR Start Stop Document 06/27/17 09:04 KE (Rec: 06/27/17 09:04 KE [id number]) Intravenous Solution Start Date 06/27/17 Start Time 09:04 Indomethacin (Indocin) 25 mg PO TID KEVIN Last Admin: 06/27/17 09:05 Dose: Not Given Non-Admin Reason: Patient Refused Lorazepam (Ativan) 2 mg PO ONCE ONE PRN Reason: Protocol Stop: 06/26/17 21:31 Last Admin: 06/26/17 22:04 Dose: 2 mg Behavioural Document 06/26/17 22:04 SRE (Rec: 06/26/17 22:04 SRE [id number]) Maintenance Maintenance Dose Yes Nonmedicinal Nonmedicinal Interventions See nurse's notes Behavior Behavior for Medication: Insomnia Re-Assess: Reassess Psych Meds Document 06/26/17 23:04 SRE (Rec: 06/27/17 06:11 SRE [id number]) Reassess Psych Med Effective Morphine Sulfate (Morphine) 2 mg IVP STAT STA Stop: 06/26/17 02:24 Last Admin: 06/26/17 02:30 Dose: 2 mg MAR Pain Assessment Document 06/26/17 02:30 CNR (Rec: 06/26/17 02:31 CNR [id number]) Pain Reassessment Is this a pain reassessment? Yes Location Pain Location Body Site Chest Back Description Description Intermittent IVP Administration Document 06/26/17 02:30 CNR (Rec: 06/26/17 02:31 CNR [id number]) Charges for Administration # of IVP Administrations 1 Re-Assess: MAR Pain Assessment Document 06/26/17 03:30 GC (Rec: 06/26/17 07:02 GC [id number]) Pain Reassessment Is this a pain reassessment? Yes Sleep Is patient sleeping during reassessment? Yes Nicotine (Nicoderm Cq) 1 patch TD DAILY [facility] Last Admin: 06/27/17 09:01 Dose: 1 patch [facility] Transdermal Patch Site Document 06/27/17 09:01 KE (Rec: 06/27/17 09:04 KE [id number]) Transdermal Patch Site Transdermal Patch Site Left Upper Chest Non-Formulary Medication (Dutasteride [Avodart]) 0.5 mg PO DAILY [facility] Last Admin: 06/27/17 09:05 Dose: Non-Formulary Medication (Silodosin [Rapaflo]) 8 mg PO DAILY [facility] Non-Formulary Medication (Silodosin [Rapaflo]) 8 mg PO DAILY [facility] Last Admin: 06/26/17 09:59 Dose: - Scribe Statement The provider has reviewed the documentation as recorded by the Scribmannie Hernandez All medical record entries made by the Scribe were at my direction and personally dictated by me. I have reviewed the chart and agree that the record accurately reflects my personal performance of the history, physical exam, medical decision making, and the department course for this patient. I have also personally directed, reviewed, and agree with the discharge instructions and disposition. Disposition/Present on Arrival - Present on Arrival Any Indicators Present on Arrival: No History of DVT/PE: No History of Uncontrolled Diabetes: No Urinary Catheter: No History Surgical Site Infection Following: None - Disposition Have Diagnosis and Disposition been Completed?: Yes Diagnosis: Community acquired pneumonia, Chest pain Disposition: HOSPITALIZED Disposition Time: 05:00 Condition: GOOD
[2017-06-26 01:14] LABS: BASO # 0.03 K/mm3 (0.0-2.0); BASO % 0.2 % (0.0-3.0); EOS # 0.1 (0.0-0.7); EOS % 0.6 % (1.5-5.0); GRAN # 10.53 (1.4-6.5); GRAN % 84.8 % (50.0-68.0); HEMOGLOBIN 12.3 g/dL (14.0-18.0); LYMPH # 0.9 (1.2-3.4); LYMPH % 7.2 % (22.0-35.0); MEAN CELL VOLUME 91.7 fl (80.0-105.0); MEAN CORPUSCULAR HEMOGLOBIN 31.1 pg (25.0-35.0); MEAN CORPUSCULAR HGB CONC 33.9 g/dl (31.0-37.0); MEAN PLATELET VOLUME 10.8 fl (7.0-11.0); MONO # 0.9 (0.1-0.6); MONO % 7.2 % (1.0-6.0); RBC 3.96 10^6/uL (3.5-6.1); RED CELL DISTRIBUTION WIDTH 13.1 % (11.5-14.5); WHITE BLOOD COUNT 12.4 10^3/ul (4.5-11.0)
[2017-06-26 01:17] LABS: ALB/GLOB RATIO 1.4 (1.1-1.8); ALBUMIN 3.9 g/dL (3.0-4.8); ALT/SGPT 28 U/L (7-56); AST/SGOT 36 U/L (17-59); BLOOD UREA NITROGEN 25 mg/dL (7-21); CALCIUM 9.8 mg/dL (8.4-10.5); GFR AFRICAN-AMERICAN > 60; GFR NON-AFRICAN AMERICAN > 60
[2017-06-26 01:28] LABS: INR 0.97 (0.93-1.08); PARTIAL THROMBOPLASTIN TIME 30.1 Seconds (25.1-36.5); TROPONIN I < 0.01 ng/mL
[2017-06-26] MEDS ORDERED: Iodixanol 320 MG/ML 100 ML BOTTLE IV ONE (01:42)
[2017-06-26] MEDS ORDERED: Morphine 4 mg/ml ISec IVP STA (02:23)
[2017-06-26 02:46] LABS: URINE BILIRUBIN NEGATIVE (NEGATIVE); URINE BLOOD SMALL (NEGATIVE); URINE GLUCOSE (UA) NEGATIVE (NEGATIVE); URINE LEUKOCYTE ESTERASE NEGATIVE Leu/uL (NEGATIVE); URINE PROTEIN NEGATIVE mg/dL (<30 mg/dL); URINE UROBILINOGEN 0.2 E.U./dL (<1 E.U./dL)
[2017-06-26 02:47] LABS: URINE APPEARANCE CLEAR (CLEAR); URINE COLOR YELLOW (YELLOW)
[2017-06-26 03:01] LABS: URINE EPITHELIAL CELLS 0 - 2 /hpf (0-5); URINE WBC 0 - 2 /hpf (0-6)
--- NOTE | 2017-06-26 03:24 | CT ---
EXAM: CT Angiography Chest With Intravenous Contrast CLINICAL HISTORY: 76 years old, male; Pain; Chest pain TECHNIQUE: Axial computed tomographic angiography images of the chest with intravenous contrast using pulmonary embolism protocol. All CT scans at this facility use one or more dose reduction techniques, viz.: automated exposure control; ma/kV adjustment per patient size (including targeted exams where dose is matched to indication; i.e. head); or iterative reconstruction technique. MIP reconstructed images were created and reviewed. Coronal and sagittal reformatted images were created and reviewed. CONTRAST: 96 mL of VISI 320 administered intravenously. COMPARISON: DX - CHEST PORTABLE 2017-04-14 09:02 FINDINGS: Pulmonary arteries: Unremarkable. No pulmonary embolism. Aorta: No acute findings. No thoracic aortic aneurysm. Lungs: Bilateral lower lobe groundglass opacities secondary to atelectasis or infiltrate. Pleural space: Unremarkable. No significant effusion. No pneumothorax. Heart: Coronary artery calcification. No significant pericardial effusion. No evidence of RV dysfunction. Bones/joints: No acute fracture. No dislocation. Soft tissues: Unremarkable. Lymph nodes: Unremarkable. No enlarged lymph nodes. Kidneys and ureters: There is a simple cyst in the right kidney. IMPRESSION: No pulmonary embolism. Bilateral lower lobe groundglass opacities secondary atelectasis or infiltrate.
[2017-06-26] MEDS ORDERED: Azithromycin 500MG/NS 250ml 500 MG/250 ML BAG IVPB STA (03:31)
--- NOTE | 2017-06-26 05:21 | CP.PCM.HP ---
History of Present Illness - History of Present Illness History of Present Illness: Hayley Lilly, PGY1, H&P for Dr Yvrose Herbert: CC: chest pain 76 year old male, whose past medical history includes CAD with no stents, BPH, presents for chest pain that started this afternoon. Pt locates it midsternal, pressure like, states that it hurts when he takes a deep breath, had some associated diaphoresis. Denies nausea, vomiting, fever chills, epigastric pain, diarrhea, constipation, urinary symptoms, leg swelling. Reports mild chronic smokers cough. Pt was admitted to [facility] in 03/2017 for left foot cellulitis s/p foreign body trauma, currently being treated by Dr Mai. in ED, CTA neg for PE. 12 point ROS obtained and neg, except as per HPI. PMD: Dr. Obrien ED: wbc 12.4. trop negx1. UA neg for infection. morphine 2 mg, azithromycin. PMH: CAD, prolonged QT syndrome, BPH, hyperlipidemia, anxiety, and subclinical hypothyroidism Family medical history: Noncontributory Social history: Current smoker, 3-4 cigarettes per day. 3-4 alcoholic beverages per day, denies illicit drug use Allergies: NKDA Medications: Reviewed, as per MAR Present on Admission - Present on Admission Any Indicators Present on Admission: No History of DVT/PE: No History of Uncontrolled Diabetes: No Urinary Catheter: No Decubitus Ulcer Present: No Review of Systems - Review of Systems All systems: reviewed and no additional remarkable complaints except Review of Systems: as per HPI Past Patient History - Infectious Disease Hx of Infectious Diseases: None - Tetanus Immunizations Tetanus Immunization: Unknown - Past Social History Smoking Status: Never Smoked - CARDIAC Hx Hypertension: Yes - PULMONARY Hx Pneumonia: Yes - NEUROLOGICAL Hx Transient Ischemic Attacks (TIA): Yes (PATIENT DENIES) - HEENT Hx HEENT Problems: Yes (WEARS RX GLASSES) Hx Deafness: Yes (BILATERAL EARS) - RENAL Hx Chronic Kidney Disease: No - ENDOCRINE/METABOLIC Hx Endocrine Disorders: Yes (DM -BORDERLINE) - HEMATOLOGICAL/ONCOLOGICAL Hx Blood Transfusions: No Hx Blood Transfusion Reaction: No - INTEGUMENTARY Hx Dermatological Problems: No - MUSCULOSKELETAL/RHEUMATOLOGICAL Hx Arthritis: No - GASTROINTESTINAL Hx Gastrointestinal Disorders: Yes (INGUINAL HERNIA) Hx Gastroesophageal Reflux: Yes - GENITOURINARY/GYNECOLOGICAL Hx Genitourinary Disorders: Yes Hx Prostate Problems: Yes (BPH) - PSYCHIATRIC Hx Anxiety: Yes Hx Depression: No Hx Substance Use: No - SURGICAL HISTORY Hx Cardiac Catheterization: Yes - ANESTHESIA Hx Anesthesia Reactions: No Hx Malignant Hyperthermia: No Meds Allergies/Adverse Reactions: Allergies Allergy/AdvReac Type Severity Reaction Status Date / Time No Known Allergies Allergy Verified 06/26/17 00:37 Physical Exam - Constitutional Appears: Non-toxic, No Acute Distress - Head Exam Head Exam: ATRAUMATIC, NORMOCEPHALIC - Eye Exam Eye Exam: EOMI, PERRL. absent: Conjunctival injection, Nystagmus, Scleral icterus Pupil Exam: NORMAL ACCOMODATION. absent: Fixed, Irregular, Miosis, Mydriatic, Unequal - ENT Exam ENT Exam: Mucous Membranes Moist - Neck Exam Neck exam: Positive for: Full Rom - Respiratory Exam Respiratory Exam: absent: Accessory Muscle Use, Chest Wall Tenderness, Rales, Wheezes, Stridor Additional comments: + bilateral coarse breath sounds - Cardiovascular Exam Cardiovascular Exam: +S1, +S2. absent: Systolic Murmur - GI/Abdominal Exam GI & Abdominal Exam: Normal Bowel Sounds, Soft. absent: Distended, Firm, Guarding, Mass, Rebound, Rigid, Tenderness - Extremities Exam Extremities exam: Positive for: normal inspection. Negative for: calf tenderness, pedal edema - Back Exam Back exam: NORMAL INSPECTION - Neurological Exam Neurological exam: Alert, Oriented x3 - Psychiatric Exam Psychiatric exam: Normal Affect, Normal Mood - Skin Skin Exam: Dry, Normal Color, Warm Results - Vital Signs Recent Vital Signs: Last Vital Signs Temp 99.3 F 06/26/17 00:37 Pulse 82 06/26/17 04:03 Resp 22 06/26/17 04:03 BP 123/63 06/26/17 04:03 Pulse Ox 98 06/26/17 04:03 - Labs Result Diagrams: 06/26/17 00:38 06/26/17 00:38 Labs: Laboratory Results - last 24 hr 06/26/17 06/26/17 06/26/17 00:38 00:38 00:38 WBC 12.4 H D RBC 3.96 Hgb 12.3 L Hct 36.3 L MCV 91.7 MCH 31.1 MCHC 33.9 RDW 13.1 Plt Count 285 MPV 10.8 Gran % 84.8 H Lymph % (Auto) 7.2 L [place] % (Auto) 7.2 H Eos % (Auto) 0.6 L Baso % (Auto) 0.2 Gran # 10.53 H Lymph # (Auto) 0.9 L [place] # (Auto) 0.9 H Eos # (Auto) 0.1 Baso # (Auto) 0.03 PT 11.0 INR 0.97 APTT 30.1 Sodium 140 Potassium 4.2 Chloride 103 Carbon Dioxide 29 Anion Gap 12 BUN 25 H Creatinine 1.1 Est GFR ( Amer) > 60 Est GFR (Non-Af Amer) > 60 Random Glucose 148 H Calcium 9.8 Magnesium 1.8 Total Bilirubin 0.3 AST 36 ALT 28 Alkaline Phosphatase 76 Lactate Dehydrogenase 391 Total Creatine Kinase 58 Troponin I < 0.01 Total Protein 6.8 Albumin 3.9 Globulin 2.8 Albumin/Globulin Ratio 1.4 Urine Color Urine Appearance Urine pH Ur Specific [place] Urine Protein Urine Glucose (UA) Urine Ketones Urine Blood Urine Nitrate Urine Bilirubin Urine Urobilinogen Ur Leukocyte Esterase Urine RBC Urine WBC Ur Epithelial Cells 06/26/17 01:10 WBC RBC Hgb Hct MCV MCH MCHC RDW Plt Count MPV Gran % Lymph % (Auto) [place] % (Auto) Eos % (Auto) Baso % (Auto) Gran # Lymph # (Auto) [place] # (Auto) Eos # (Auto) Baso # (Auto) PT INR APTT Sodium Potassium Chloride Carbon Dioxide Anion Gap BUN Creatinine Est GFR ( Amer) Est GFR (Non-Af Amer) Random Glucose Calcium Magnesium Total Bilirubin AST ALT Alkaline Phosphatase Lactate Dehydrogenase Total Creatine Kinase Troponin I Total Protein Albumin Globulin Albumin/Globulin Ratio Urine Color Yellow Urine Appearance Clear Urine pH 6.0 Ur Specific [place] 1.020 Urine Protein Negative Urine Glucose (UA) Negative Urine Ketones Negative Urine Blood Small H Urine Nitrate Negative Urine Bilirubin Negative Urine Urobilinogen 0.2 Ur Leukocyte Esterase Negative Urine RBC 2 - 5 Urine WBC 0 - 2 Ur Epithelial Cells 0 - 2 Assessment & Plan - Assessment and Plan (Free Text) Assessment: 76 year old male with PMH CAD with no stents, BPH, presents for chest pain, CAP: Chest pain: - CTA neg for PE - initial trop neg, EKG NSR at [address]-segment elevations or depressions, no T-wave inversions, normal intervals. - Serial trops, EKG in AM - Cardio consult. f/u recs. - ASA, lipitor - TSH, lipid panel, hgbA1c - Pulm consulted for pleuritic cp Bilateral lower lobe groundglass opacities: 2/2 CAP vs atelectasis - leukocytosis noted, afebrile - Levaquin - ICS - daily cbc - procal - panculture - Pulm c/s. f/u recs Hx of BPH: - resume home dutasteride, silodosin Hx of nicotine abuse: - advised cessation - nicotine patch PPX: Pepcid, SCDs Diet: NPO Discussed with Dr Yvrose Herbert. - Date & Time Date: 06/26/17 Time: 06:13
[2017-06-26 06:52] LABS: HDL CHOLESTEROL 41 mg/dL (29-60)
[2017-06-26 07:00] LABS: LDL CHOLESTEROL 91 mg/dL (0-129); TROPONIN I < 0.01 ng/mL
[2017-06-26] MEDS: levoFLOXacin 500 mg in D5W 500 MG/100 ML BAG IVPB SCH (09:11)
[2017-06-26] MEDS: Non Formulary Medication (Dutasteride [Avodart] 0.5 MG) PO SCH (09:59)
--- NOTE | 2017-06-26 10:08 | CARD ---
APPROVED REPORT EKG Measurement Heart [id number] <Conclusion> Normal sinus rhythm LAD RVCD NSSTW changes No change
--- NOTE | 2017-06-26 11:19 | CON ---
DATE: 06/26/2017 CARDIOLOGY CONSULTATION HISTORY OF PRESENT ILLNESS: The patient is a 76-year-old male who presents with pleuritic-like chest pain. The patient's past medical history includes documented coronary artery disease, 50% stenoses by catheterization. His last stress test was unremarkable. He denies angina. The patient continues to smoke and suffers from hypercholesterolemia. SOCIAL HISTORY: He is an active smoker. REVIEW OF SYSTEMS: A 14-point review of systems is reviewed in detail. No cardiac symptomatology is noted. PHYSICAL EXAMINATION VITAL SIGNS: Blood pressure is 108/64, heart rates is in the 70s. NECK: Negative JVD. LUNGS: Without rales. HEART: S1, S2. EXTREMITIES: Without edema. DATA: EKG is within normal limits. Troponins are negative x2. The glucose is 148, hemoglobin is 12.3 with a white count of 12.4. IMPRESSION 1. Pleuritic-like chest pain. 2. Pneumonia. 3. Chronic obstructive pulmonary disease. 4. Stable angina. 5. Nonobstructive coronary artery disease. 6. History of nicotine addiction. 7. Hypercholesterolemia. Given these findings, there is no evidence for acute coronary syndrome. I have discussed with the patient about the need to stop smoking. The patient is currently on antibiotics. Denny Alvarado MD
--- NOTE | 2017-06-26 12:10 | RAD ---
PROCEDURE: Left Foot Radiographs. HISTORY: f/u xray COMPARISON: None. FINDINGS: BONES: Normal. No fracture. JOINTS: Normal. SOFT TISSUES: Normal. OTHER FINDINGS: Plaster cast IMPRESSION: Negative study
--- NOTE | 2017-06-26 12:30 | CP.PCM.CON ---
<Qiana Rodriguez - Last Filed: 06/26/17 13:49> History of Present Illness - History of Present Illness History of Present Illness: Podiatry Consult Note - Dr. Mai 76M seen and evaluated at bedside for left foot pain. Patient was admitted for chest pain. Patient was last seen in Dr. Mai's office as outpatient on Friday for left foot pain and was placed in an unna boot with coban to LLE. Of note, patient had a foreign body removal performed by outside compliance lead in office and since then states his foot "has not been the same since." Patient reports continued pain proximal to his 2nd digit, however decreased since he has been ambulating in a forefoot wedge shoe. Denies N/V/F/D/C. Offers no other complaints. Review of Systems - Review of Systems All systems: reviewed and no additional remarkable complaints except (as per HPI ) Past Patient History - Infectious Disease Hx of Infectious Diseases: None - Tetanus Immunizations Tetanus Immunization: Unknown - Past Social History Smoking Status: Never Smoked - CARDIAC Hx Hypertension: Yes - PULMONARY Hx Pneumonia: Yes - NEUROLOGICAL Hx Transient Ischemic Attacks (TIA): Yes (PATIENT DENIES) - HEENT Hx HEENT Problems: Yes (WEARS RX GLASSES) Hx Deafness: Yes (BILATERAL EARS) - RENAL Hx Chronic Kidney Disease: No - ENDOCRINE/METABOLIC Hx Endocrine Disorders: Yes (DM -BORDERLINE) - HEMATOLOGICAL/ONCOLOGICAL Hx Blood Transfusions: No Hx Blood Transfusion Reaction: No - INTEGUMENTARY Hx Dermatological Problems: No - MUSCULOSKELETAL/RHEUMATOLOGICAL Hx Arthritis: No - GASTROINTESTINAL Hx Gastrointestinal Disorders: Yes (INGUINAL HERNIA) Hx Gastroesophageal Reflux: Yes - GENITOURINARY/GYNECOLOGICAL Hx Genitourinary Disorders: Yes Hx Prostate Problems: Yes (BPH) - PSYCHIATRIC Hx Anxiety: Yes Hx Depression: No Hx Substance Use: No - SURGICAL HISTORY Hx Cardiac Catheterization: Yes - ANESTHESIA Hx Anesthesia Reactions: No Hx Malignant Hyperthermia: No Meds Home Medications: Home Medication List Medication Instructions Recorded Confirmed Type Aspirin [Aspirin Chewable] 81 mg PO DAILY chew 06/27/17 Rx Azithromycin 500 mg PO DAILY 5 Days tablet 06/27/17 Rx Silodosin [Rapaflo] 8 mg PO DAILY 06/27/17 Rx Allergies/Adverse Reactions: Allergies Allergy/AdvReac Type Severity Reaction Status Date / Time No Known Allergies Allergy Verified 06/26/17 00:37 - Medications Medications: Current Medications Aspirin (Aspirin Chewable) 81 mg PO DAILY [facility] Atorvastatin Calcium (Lipitor) 10 mg PO DIN [facility] Famotidine (Pepcid) 20 mg PO 1000,2200 [facility] Last Admin: 06/26/17 09:05 Dose: 20 mg Levofloxacin/Dextrose (Levaquin 500mg) 500 mg in 100 mls @ 100 mls/hr IVPB DAILY [facility] PRN Reason: Protocol Last Admin: 06/26/17 09:11 Dose: 100 mls/hr Indomethacin (Indocin) 25 mg PO TID [facility] Last Admin: 06/26/17 09:12 Dose: Not Given Nicotine (Nicoderm Cq) 1 patch TD DAILY [facility] Last Admin: 06/26/17 09:05 Dose: 1 patch Non-Formulary Medication (Dutasteride [Avodart]) 0.5 mg PO DAILY [facility] Last Admin: 06/26/17 09:59 Dose: Not Given Non-Formulary Medication (Silodosin [Rapaflo]) 8 mg PO DAILY [facility] Last Admin: 06/26/17 09:59 Dose: Not Given Physical Exam - Constitutional Appears: Well, Non-toxic, No Acute Distress - Extremities Exam Additional comments: LLE focused physical exam: Unna boot present to left lower extremity, coban absent CFT <3 seconds to digits x5 Light touch sensation intact to digits x5 Pain on palpation 2nd met head extending proximally into shaft - Neurological Exam Neurological exam: Alert, Oriented x3 - Psychiatric Exam Psychiatric exam: Normal Affect, Normal Mood Results - Vital Signs Recent Vital Signs: Last Vital Signs Temp 99.3 F 06/26/17 00:37 Pulse 78 06/26/17 10:00 Resp 20 06/26/17 06:11 BP 108/64 06/26/17 06:11 Pulse Ox 97 06/26/17 06:09 - Labs Result Diagrams: 06/26/17 00:38 06/26/17 00:38 Labs: Laboratory Results - last 24 hr 06/26/17 06/26/17 06:13 08:54 Troponin I < 0.01 Triglycerides 73 Cholesterol 156 LDL Cholesterol Direct 91 HDL Cholesterol 41 Thyroxine (T4) 5.4 L Assessment & Plan - Assessment and Plan (Free Text) Assessment: 76M with left foot pain r/o 2nd metatarsal stress fracture Plan: Patient seen and evaluated alongside attending, Dr. Mai Afebrile, WBC 12.4 L foot XR reviewed: radiodensity present overlying 2nd metatarsal neck/distal shaft that is present in previous XR taken on 04/12/17. Suspect possible residual silver nitrate within foot given patient history; will be treated on an outpatient basis Unna boot to LLE maintained Continue WBAT in forefoot wedge shoe Stable per podiatry standpoint Patient to follow up with Dr. Mai in office s/p discharge Podiatry will continue to follow while patient remains in house <Cheli Mai - Last Filed: 06/30/17 15:14> Results - Vital Signs Recent Vital Signs: Last Vital Signs Temp 97.7 F 06/27/17 06:00 Pulse 78 06/27/17 06:00 Resp 16 06/27/17 06:00 BP 116/65 06/27/17 06:00 Pulse Ox 97 06/27/17 06:00 - Labs Result Diagrams: 06/27/17 06:00 06/27/17 06:00 Attending/Attestation - Attestation I have personally seen and examined this patient.: Yes I have fully participated in the care of the patient.: Yes I have reviewed all pertinent clinical information: Yes Notes (Text): 06/30/17 14:55 Pt seen at bedside - his unna boot is clean and intact - has no pain in the left foot at this time; pt being discharged home - he will follow in office next week
--- NOTE | 2017-06-26 13:50 | CP.PCM.CON ---
History of Present Illness - History of Present Illness History of Present Illness: Pulmonary Consult Note Reason for consult: ground glass opacities at the base HPI Patient is 76yo male with PMHx of CAD without stents, BPH, former smoker 40pk years, admitted to [facility] with chest pain. Pt reported chest pain is right sided, piercing, worsened on inspiration, without fever, cough, n/v/d, abd pain, diaphoresis. Pt had CT PE scan done which demonstrated NO PE, but did show ground glass opacities at the bases. Pt denies any history of COPD, emphysema, prior respiratory failure. Has never seen priming mixture carrier, or had any PFTs in the past. No other constitutional symptoms. PMH: CAD, prolonged QT syndrome, BPH, hyperlipidemia, anxiety, and subclinical hypothyroidism Family medical history: Noncontributory Social history: Current smoker, 3-4 cigarettes per day. 3-4 alcoholic beverages per day, denies illicit drug use Allergies: NKDA Medications: as per [facility] Review of Systems - Review of Systems Review of Systems: as per HPI Past Patient History - Infectious Disease Hx of Infectious Diseases: None - Tetanus Immunizations Tetanus Immunization: Unknown - Past Social History Smoking Status: Never Smoked - CARDIAC Hx Hypertension: Yes - PULMONARY Hx Pneumonia: Yes - NEUROLOGICAL Hx Transient Ischemic Attacks (TIA): Yes (PATIENT DENIES) - HEENT Hx HEENT Problems: Yes (WEARS RX GLASSES) Hx Deafness: Yes (BILATERAL EARS) - RENAL Hx Chronic Kidney Disease: No - ENDOCRINE/METABOLIC Hx Endocrine Disorders: Yes (DM -BORDERLINE) - HEMATOLOGICAL/ONCOLOGICAL Hx Blood Transfusions: No Hx Blood Transfusion Reaction: No - INTEGUMENTARY Hx Dermatological Problems: No - MUSCULOSKELETAL/RHEUMATOLOGICAL Hx Arthritis: No - GASTROINTESTINAL Hx Gastrointestinal Disorders: Yes (INGUINAL HERNIA) Hx Gastroesophageal Reflux: Yes - GENITOURINARY/GYNECOLOGICAL Hx Genitourinary Disorders: Yes Hx Prostate Problems: Yes (BPH) - PSYCHIATRIC Hx Anxiety: Yes Hx Depression: No Hx Substance Use: No - SURGICAL HISTORY Hx Cardiac Catheterization: Yes - ANESTHESIA Hx Anesthesia Reactions: No Hx Malignant Hyperthermia: No Meds Allergies/Adverse Reactions: Allergies Allergy/AdvReac Type Severity Reaction Status Date / Time No Known Allergies Allergy Verified 06/26/17 00:37 - Medications Medications: Current Medications Aspirin (Aspirin Chewable) 81 mg PO DAILY [facility] Atorvastatin Calcium (Lipitor) 10 mg PO DIN [facility] Famotidine (Pepcid) 20 mg PO 1000,2200 [facility] Last Admin: 06/26/17 09:05 Dose: 20 mg Levofloxacin/Dextrose (Levaquin 500mg) 500 mg in 100 mls @ 100 mls/hr IVPB DAILY [facility] PRN Reason: Protocol Last Admin: 06/26/17 09:11 Dose: 100 mls/hr Indomethacin (Indocin) 25 mg PO TID [facility] Last Admin: 06/26/17 13:24 Dose: Not Given Nicotine (Nicoderm Cq) 1 patch TD DAILY [facility] Last Admin: 06/26/17 09:05 Dose: 1 patch Non-Formulary Medication (Dutasteride [Avodart]) 0.5 mg PO DAILY [facility] Last Admin: 06/26/17 09:59 Dose: Not Given Non-Formulary Medication (Silodosin [Rapaflo]) 8 mg PO DAILY [facility] Last Admin: 06/26/17 09:59 Dose: Not Given Physical Exam - Constitutional Appears: Non-toxic, No Acute Distress - Head Exam Head Exam: NORMAL INSPECTION - Eye Exam Eye Exam: Normal appearance - ENT Exam ENT Exam: Mucous Membranes Moist - Respiratory Exam Respiratory Exam: Clear to Auscultation Bilateral, NORMAL BREATHING PATTERN - Cardiovascular Exam Cardiovascular Exam: REGULAR RHYTHM, +S1, +S2 - GI/Abdominal Exam GI & Abdominal Exam: Normal Bowel Sounds, Soft - Extremities Exam Extremities exam: Positive for: normal inspection - Neurological Exam Neurological exam: Alert, Oriented x3 - Psychiatric Exam Psychiatric exam: Normal Affect - Skin Skin Exam: Normal Color, Warm Results - Vital Signs Recent Vital Signs: Last Vital Signs Temp 99.3 F 06/26/17 00:37 Pulse 78 06/26/17 10:00 Resp 20 06/26/17 06:11 BP 108/64 06/26/17 06:11 Pulse Ox 97 06/26/17 06:09 - Labs Result Diagrams: 06/26/17 00:38 06/26/17 00:38 Labs: Laboratory Results - last 24 hr 06/26/17 06/26/17 06/26/17 06:13 08:54 11:45 Troponin I < 0.01 < 0.01 Triglycerides 73 Cholesterol 156 LDL Cholesterol Direct 91 HDL Cholesterol 41 Thyroxine (T4) 5.4 L - Imaging and Cardiology CT scan - chest Status: Image reviewed by me, Report reviewed by me Assessment & Plan - Assessment and Plan (Free Text) Assessment: 76yo male a/w chest pain and ground glass sopacities on CT scan. - currently afebrile, HD stable, comfortable in NAD, minimal WBC elevation - denies fevers, but does endorse a dry cough with chills - ground glass opacities at the bases likely atelectasis vs infection - would treat with Azithromycin PO x 5 days, (QtC 425) - needs outpatient PFTs, yearly Low dose CT given hx of smoking - needs outpatient pulmonary follow up, can follow up with us in [facility]
[2017-06-26] MEDS ORDERED: Dextrose 50% SYRINGE Inj (50 ml) ONE (16:33)
--- NOTE | 2017-06-26 16:51 | CARD ---
APPROVED REPORT EKG Measurement Heart [id number] <Conclusion> Sinus rhythm with frequent premature ventricular complexes Possible inferior infarct, age undetermined RVCD
--- NOTE | 2017-06-27 04:53 | CP.PCM.DIS ---
<Phu Scott - Last Filed: 06/27/17 12:44> Provider - Provider Date of Admission: 06/26/17 05:45 Attending physician: Priyanka Herbert MD Primary care physician: Roland Obrien DO Time Spent in preparation of Discharge (in minutes): 45 Diagnosis - Discharge Diagnosis (1) Community acquired pneumonia Status: Acute Priority: Medium (2) Foreign body in foot Status: Acute (3) Benign prostate hyperplasia Status: Chronic Priority: Medium (4) Hypothyroid Status: Acute Priority: Medium Hospital Course - Lab Results Lab Results: Most Recent Lab Values WBC 12.4 10^3/ul (4.5-11.0) H D 04 00:38 RBC 3.96 10^6/uL (3.5-6.1) 06/26/17 00:38 Hgb 12.3 g/dL (14.0-18.0) L 04 00:38 Hct 36.3 % (42.0-52.0) L 04 00:38 MCV 91.7 fl (80.0-105.0) 04 00:38 MCH 31.1 pg (25.0-35.0) 04 00:38 MCHC 33.9 g/dl (31.0-37.0) 04 00:38 RDW 13.1 % (11.5-14.5) 04 00:38 Plt Count 285 10^3/uL (120.0-450.0) 06/26/17 00:38 MPV 10.8 fl (7.0-11.0) 04 00:38 Gran % 84.8 % (50.0-68.0) H 06/26/17 00:38 Lymph % (Auto) 7.2 % (22.0-35.0) L 06/26/17 00:38 [place] % (Auto) 7.2 % (1.0-6.0) H 06/26/17 00:38 Eos % (Auto) 0.6 % (1.5-5.0) L 06/26/17 00:38 Baso % (Auto) 0.2 % (0.0-3.0) 04 00:38 Gran # 10.53 (1.4-6.5) H 18 00:38 Lymph # (Auto) 0.9 (1.2-3.4) L 04 00:38 [place] # (Auto) 0.9 (0.1-0.6) H 06/26/17 00:38 Eos # (Auto) 0.1 (0.0-0.7) 06/26/17 00:38 Baso # (Auto) 0.03 K/mm3 (0.0-2.0) 06/26/17 00:38 PT 11.0 SECONDS (9.4-12.5) 06/26/17 00:38 INR 0.97 (0.93-1.08) 06/26/17 00:38 APTT 30.1 Seconds (25.1-36.5) 06/26/17 00:38 Sodium 140 mmol/L (132-148) 06/26/17 00:38 Potassium 4.2 mmol/L (3.6-5.0) 06/26/17 00:38 Chloride 103 mmol/L (98-107) 06/26/17 00:38 Carbon Dioxide 29 mmol/L (21-33) 06/26/17 00:38 Anion Gap 12 (10-20) 06/26/17 00:38 BUN 25 mg/dL (7-21) H 06/26/17 00:38 Creatinine 1.1 mg/dl (0.8-1.5) 06/26/17 00:38 Est GFR ( Amer) > 60 04 00:38 Est GFR (Non-Af Amer) > 60 06/26/17 00:38 Random Glucose 148 mg/dL (70-110) H 06/26/17 00:38 Hemoglobin A1c 6.1 % (4.2-6.5) 06/26/17 00:38 Calcium 9.8 mg/dL (8.4-10.5) 06/26/17 00:38 Magnesium 1.8 mg/dL (1.7-2.2) 06/26/17 00:38 Total Bilirubin 0.3 mg/dL (0.2-1.3) 06/26/17 00:38 AST 36 U/L (17-59) 04/12/18 00:38 ALT 28 U/L (7-56) 06/26/17 00:38 Alkaline Phosphatase 76 U/L (38-126) 06/26/17 00:38 Lactate Dehydrogenase 391 U/L (333-699) 06/26/17 00:38 Total Creatine Kinase 58 U/L (35-230) 06/26/17 00:38 Troponin I < 0.01 ng/mL 06/26/17 11:45 Total Protein 6.8 g/dL (5.8-8.3) 06/26/17 00:38 Albumin 3.9 g/dL (3.0-4.8) 06/26/17 00:38 Globulin 2.8 gm/dL 06/26/17 00:38 Albumin/Globulin Ratio 1.4 (1.1-1.8) 06/26/17 00:38 Triglycerides 73 mg/dL (35-160) 06/26/17 06:13 Cholesterol 156 mg/dL (130-200) 06/26/17 06:13 LDL Cholesterol Direct 91 mg/dL (0-129) 06/26/17 06:13 HDL Cholesterol 41 mg/dL (29-60) 06/26/17 06:13 Procalcitonin 0.06 NG/ML (0.19-0.49) L 06/26/17 07:30 Thyroxine (T4) 5.4 ug/dL (5.5-11.0) L 06/26/17 08:54 TSH 3rd Generation 7.23 mIU/mL (0.46-4.68) H 06/26/17 00:38 Urine Color Yellow (YELLOW) 06/26/17 01:10 Urine Appearance Clear (CLEAR) 06/26/17 01:10 Urine pH 6.0 (4.7-8.0) 06/26/17 01:10 Ur Specific [place] 1.020 (1.005-1.035) 06/26/17 01:10 Urine Protein Negative mg/dL (<30 mg/dL) 06/26/17 01:10 Urine Glucose (UA) Negative mg/dL (NEGATIVE) 06/26/17 01:10 Urine Ketones Negative mg/dL (NEGATIVE) 06/26/17 01:10 Urine Blood Small (NEGATIVE) H 06/26/17 01:10 Urine Nitrate Negative (NEGATIVE) 06/26/17 01:10 Urine Bilirubin Negative (NEGATIVE) 06/26/17 01:10 Urine Urobilinogen 0.2 E.U./dL (<1 E.U./dL) 06/26/17 01:10 Ur Leukocyte Esterase Negative [place]/uL (NEGATIVE) 06/26/17 01:10 Urine RBC 2 - 5 /hpf (0-2) 06/26/17 01:10 Urine WBC 0 - 2 /hpf (0-6) 06/26/17 01:10 Ur Epithelial Cells 0 - 2 /hpf (0-5) 06/26/17 01:10 - Hospital Course Hospital Course: Patient is a 76 year old male with PMHx of CAD with no stents and BPH who was admitted for evaluation and treatment for chest discomfort. With the use of physical examinations, lab work, and imaging the patient was diagnosed with and treated for community acquire pneumonia and acute coronary syndrome was ruled out. During their hospital stay the patient was seen by cardiology (Dr. Alvarado), podiatry (Dr. Mai), pulmonology (Dr. Horner) and their recommendations were both appreciated and utilized in the care for this patient. During their hospital stay the patient underwent a CTA and foot xray which were reviewed, appreciated, and utilized in the management of the patients clinical course. The CTA showed no pulmonary embolism and bilateral lower lobe groundglass opacities secondary atelectasis or infiltrate. Patient was treated with antibiotics, aspirin amongst other empiric/therapeutic medications. At this time the patient is medically stable for discharge. Patient understands and appreciates discharge plan. Patient instructed to follow up with primary care physicians and referrals within three to five days from discharge. Furthermore, the patient is instructed to take medications as prescribed and to return to emergency room for evaluation of intractable headache, fever, chills, dizziness , chest pain, shortness of breath, abdominal pain, nausea, vomiting, diarrhea, constipation, and urinary symptoms. This is a brief summary of the patients hospital course. Please see patient chart for full details. Discharge Exam - Head Exam Head Exam: NORMAL INSPECTION - Additional Findings Additional findings: - Constitutional Appears: Non-toxic, No Acute Distress - Head Exam Head Exam: ATRAUMATIC, NORMOCEPHALIC - Eye Exam Eye Exam: EOMI, PERRL. absent: Conjunctival injection, Nystagmus, Scleral icterus - ENT Exam ENT Exam: Mucous Membranes Moist - Neck Exam Neck exam: Positive for: Full Rom - Respiratory Exam Respiratory Exam: CTA bilaterally, absent: Accessory Muscle Use, Chest Wall Tenderness, Rales, Wheezes, Stridor - Cardiovascular Exam Cardiovascular Exam: +S1, +S2. absent: Systolic Murmur - GI/Abdominal Exam GI & Abdominal Exam: Normal Bowel Sounds, Soft. absent: Distended, Firm, Guarding, Mass, Rebound, Rigid, Tenderness - Extremities Exam Extremities exam: Positive for: normal inspection. Negative for: calf tenderness, pedal edema - Back Exam Back exam: NORMAL INSPECTION - Neurological Exam Neurological exam: Alert, Oriented x3 - Psychiatric Exam Psychiatric exam: Normal Affect, Normal Mood - Skin Skin Exam: Dry, Normal Color, Warm Discharge Plan - Discharge Medications Prescriptions: Azithromycin 500 mg PO DAILY 5 Days tablet - Follow Up Plan Condition: GOOD Disposition: HOME/ ROUTINE Patient education suggested?: Yes Instructions: Pneumonia, Adult (DC), Chest Pain (DC) Additional Instructions: Patient Instructions: 1. take medications as prescribed 2. follow up with primary care physician within 3-5 days 3. return to emergency room for evaluation of fever, chills, chest pain, SOB, abdominal pain, N/V, diarrhea, constipation, and urinary symptoms Referrals: Roland Obrien DO [Primary Care Provider] - Anson Horner MD [Staff Provider] - <Priyanka Herbert - Last Filed: 06/27/17 13:21> Provider - Provider Date of Admission: 06/26/17 05:45 Attending physician: Priyanka Herbert MD Primary care physician: Roland Obrien DO Hospital Course - Lab Results Lab Results: Micro Results 06/26/17 07:30 Blood Blood Culture - Preliminary NO GROWTH AFTER 24 HOURS 06/26/17 07:00 Blood Blood Culture - Preliminary NO GROWTH AFTER 24 HOURS Most Recent Lab Values WBC 7.9 10^3/ul (4.5-11.0) D 06/27/17 06:00 RBC 4.00 10^6/uL (3.5-6.1) 06/27/17 06:00 Hgb 12.3 g/dL (14.0-18.0) L 06/27/17 06:00 Hct 36.5 % (42.0-52.0) L 06/27/17 06:00 MCV 91.3 fl (80.0-105.0) 06/27/17 06:00 MCH 30.8 pg (25.0-35.0) 06/27/17 06:00 MCHC 33.7 g/dl (31.0-37.0) 06/27/17 06:00 RDW 13.0 % (11.5-14.5) 06/27/17 06:00 Plt Count 252 10^3/uL (120.0-450.0) 06/27/17 06:00 MPV 10.6 fl (7.0-11.0) 06/27/17 06:00 Gran % 70.9 % (50.0-68.0) H 06/27/17 06:00 Lymph % (Auto) 16.1 % (22.0-35.0) L 06/27/17 06:00 [place] % (Auto) 12.1 % (1.0-6.0) H 06/27/17 06:00 Eos % (Auto) 0.5 % (1.5-5.0) L 06/27/17 06:00 Baso % (Auto) 0.4 % (0.0-3.0) 06/27/17 06:00 Gran # 5.57 (1.4-6.5) 06/27/17 06:00 Lymph # (Auto) 1.3 (1.2-3.4) 06/27/17 06:00 [place] # (Auto) 1.0 (0.1-0.6) H 06/27/17 06:00 Eos # (Auto) 0.0 (0.0-0.7) 06/27/17 06:00 Baso # (Auto) 0.03 K/mm3 (0.0-2.0) 06/27/17 06:00 PT 11.0 SECONDS (9.4-12.5) 06/26/17 00:38 INR 0.97 (0.93-1.08) 06/26/17 00:38 APTT 30.1 Seconds (25.1-36.5) 06/26/17 00:38 Sodium 142 mmol/L (132-148) 06/27/17 06:00 Potassium 3.9 mmol/L (3.6-5.0) 06/27/17 06:00 Chloride 104 mmol/L (98-107) 06/27/17 06:00 Carbon Dioxide 27 mmol/L (21-33) 06/27/17 06:00 Anion Gap 14 (10-20) 06/27/17 06:00 BUN 16 mg/dL (7-21) 06/27/17 06:00 Creatinine 1.1 mg/dl (0.8-1.5) 06/27/17 06:00 Est GFR ( Amer) > 60 06/27/17 06:00 Est GFR (Non-Af Amer) > 60 06/27/17 06:00 Random Glucose 135 mg/dL (70-110) H 06/27/17 06:00 Hemoglobin A1c 6.1 % (4.2-6.5) 06/26/17 00:38 Calcium 9.8 mg/dL (8.4-10.5) 06/27/17 06:00 Phosphorus 3.1 mg/dL (2.5-4.5) 06/27/17 06:00 Magnesium 2.1 mg/dL (1.7-2.2) 06/27/17 06:00 Total Bilirubin 0.7 mg/dL (0.2-1.3) 06/27/17 06:00 AST 27 U/L (17-59) 06/27/17 06:00 ALT 36 U/L (7-56) 06/27/17 06:00 Alkaline Phosphatase 67 U/L (38-126) 06/27/17 06:00 Lactate Dehydrogenase 391 U/L (333-699) 06/26/17 00:38 Total Creatine Kinase 58 U/L (35-230) 06/26/17 00:38 Troponin I < 0.01 ng/mL 06/26/17 11:45 Total Protein 6.5 g/dL (5.8-8.3) 06/27/17 06:00 Albumin 3.8 g/dL (3.0-4.8) 06/27/17 06:00 Globulin 2.8 gm/dL 06/27/17 06:00 Albumin/Globulin Ratio 1.3 (1.1-1.8) 06/27/17 06:00 Triglycerides 73 mg/dL (35-160) 06/26/17 06:13 Cholesterol 156 mg/dL (130-200) 06/26/17 06:13 LDL Cholesterol Direct 91 mg/dL (0-129) 06/26/17 06:13 HDL Cholesterol 41 mg/dL (29-60) 06/26/17 06:13 Procalcitonin 0.06 NG/ML (0.19-0.49) L 06/26/17 07:30 Free T4 0.76 ng/dL (0.78-2.19) L 06/27/17 06:00 Thyroxine (T4) 5.4 ug/dL (5.5-11.0) L 06/26/17 08:54 TSH 3rd Generation 7.40 mIU/mL (0.46-4.68) H 06/27/17 06:00 Urine Color Yellow (YELLOW) 06/26/17 01:10 Urine Appearance Clear (CLEAR) 06/26/17 01:10 Urine pH 6.0 (4.7-8.0) 06/26/17 01:10 Ur Specific [place] 1.020 (1.005-1.035) 06/26/17 01:10 Urine Protein Negative mg/dL (<30 mg/dL) 06/26/17 01:10 Urine Glucose (UA) Negative mg/dL (NEGATIVE) 06/26/17 01:10 Urine Ketones Negative mg/dL (NEGATIVE) 06/26/17 01:10 Urine Blood Small (NEGATIVE) H 06/26/17 01:10 Urine Nitrate Negative (NEGATIVE) 06/26/17 01:10 Urine Bilirubin Negative (NEGATIVE) 06/26/17 01:10 Urine Urobilinogen 0.2 E.U./dL (<1 E.U./dL) 06/26/17 01:10 Ur Leukocyte Esterase Negative [place]/uL (NEGATIVE) 06/26/17 01:10 Urine RBC 2 - 5 /hpf (0-2) 06/26/17 01:10 Urine WBC 0 - 2 /hpf (0-6) 06/26/17 01:10 Ur Epithelial Cells 0 - 2 /hpf (0-5) 06/26/17 01:10 Attending/Attestation - Attestation I have personally seen and examined this patient.: Yes I have fully participated in the care of the patient.: Yes I have reviewed all pertinent clinical information, including history, physical exam and plan: Yes Notes (Text): I have seen and examined the patient at bedside. Agree with the above note dictated by the resident. Patient was seen by rn perioperative, pulmonlogist and meeting facilitator. It was recommended to have outpatient PFT's. Upon discharge patient will follow up with Dr Obrien. Dr Priyanka Herbert
[2017-06-27 06:29] VITALS: BP 116/65; PULSE 78; RESP 16; TEMP 97.7; O2SAT 97
[2017-06-27 06:58] LABS: BASO # 0.03 K/mm3 (0.0-2.0); BASO % 0.4 % (0.0-3.0); EOS % 0.5 % (1.5-5.0); GRAN # 5.57 (1.4-6.5); GRAN % 70.9 % (50.0-68.0); HEMOGLOBIN 12.3 g/dL (14.0-18.0); LYMPH # 1.3 (1.2-3.4); LYMPH % 16.1 % (22.0-35.0); MEAN CELL VOLUME 91.3 fl (80.0-105.0); MEAN CORPUSCULAR HEMOGLOBIN 30.8 pg (25.0-35.0); MEAN CORPUSCULAR HGB CONC 33.7 g/dl (31.0-37.0); MEAN PLATELET VOLUME 10.6 fl (7.0-11.0); MONO % 12.1 % (1.0-6.0); WHITE BLOOD COUNT 7.9 10^3/ul (4.5-11.0)
[2017-06-27 06:59] LABS: ALB/GLOB RATIO 1.3 (1.1-1.8); ALBUMIN 3.8 g/dL (3.0-4.8); ALT/SGPT 36 U/L (7-56); AST/SGOT 27 U/L (17-59); BLOOD UREA NITROGEN 16 mg/dL (7-21); CALCIUM 9.8 mg/dL (8.4-10.5); GFR AFRICAN-AMERICAN > 60; GFR NON-AFRICAN AMERICAN > 60
[2017-06-27 07:10] LABS: FREE T4 0.76 ng/dL (0.78-2.19)
[2017-06-27] MEDS: levoFLOXacin 500 mg in D5W 500 MG/100 ML BAG IVPB SCH (09:04)
[2017-06-27] MEDS: Non Formulary Medication (Dutasteride [Avodart] 0.5 MG) PO SCH (09:05)
== END 2017-06-27 10:41 | disposition home or self-care (01) ==
LOC: ED 00:27 → ERH 05:45 → 3RSO 06:40
PROVIDERS: ADMIT Hospitalist; ATTEND Hospitalist
DX: J18.9 Pneumonia, unspecified organism (principal); J44.0 Chronic obstructive pulmonary disease with (acute) lower respiratory infection; I25.118 Atherosclerotic heart disease of native coronary artery with other forms of angina pectoris; N40.0 Benign prostatic hyperplasia without lower urinary tract symptoms; E03.9 Hypothyroidism, unspecified; E78.5 Hyperlipidemia, unspecified; E78.00 Pure hypercholesterolemia, unspecified; K21.9 Gastro-esophageal reflux disease without esophagitis; I10 Essential (primary) hypertension; M79.672 Pain in left foot; F41.9 Anxiety disorder, unspecified; H91.90 Unspecified hearing loss, unspecified ear; F17.210 Nicotine dependence, cigarettes, uncomplicated
CPT/HCPCS: 36415; 71275; 73630; 80053; 80061; 81001; 82550; 83036; 83615; 83735; 84100; 84145; 84436; 84439; 84443; 84484; 85025; 85610; 85730; 87040; 87086; 93005; 96365; 96375; 96376; 99285; G0378; J0456; J2270; Q9967